=== PATIENT | male | born 1965 | race Caucasian/White ===

== ENCOUNTER 2020-04-19 19:00 | Observation (INO) | payer OTHER, SELFPAY ==
[2020-04-19 20:23] VITALS: BP 140/80; PULSE 80; RESP 18; TEMP 36.7; O2SAT 97; BMI 34.0
[2020-04-19 20:38] VITALS: BP 135/71; PULSE 81; RESP 18; TEMP 36.9; O2SAT 97
--- NOTE | 2020-04-19 20:59 | CT_ITS ---
EXAMINATION: CT HAND WITH CONTRAST, RIGHT CLINICAL INFORMATION: Tenosynovitis COMPARISON: None TECHNIQUE: Axial images obtained through the hand after IV injection of 85 mL of Omnipaque 350. Coronal and sagittal reformatted images are performed at CT scanner This CT examination was performed using dose optimization techniques as appropriate, variously including the following: *Automated exposure control *Adjustment of mA and/or kV according to patient size (this includes techniques or standardized protocols for targeted exams where dose is matched to indication/reason for exam; i.e. extremities or head) *Use of iterative reconstruction technique DLP: 121 mGy-cm FINDINGS: There is diffuse edema in the dorsum of the hand without focal abscess or fluid collection. No abnormal enhancing lesion or structure. Tendons and tendon sheaths are of normal normal without fluid collections in the tendon sheaths or enlargement/edema of the tendons. No fracture. No focal bone lesion or abnormal periosteal reaction. Joint spaces are normal. There is widening between the navicular and the lunate and the wrist consistent with scapholunate ligament disruption. CT/CT hand RT w con IMPRESSION: 1. Diffuse subcutaneous edema at the dorsum of the hand but no abnormality of the tendon or tendon sheaths. 2. Widening of the distance between navicular and lunate suggesting scapholunate ligament disruption.
--- NOTE | 2020-04-19 21:01 | ED.EXTPRO ---
HPI - Extremity Problem General Chief complaint: Extremity Problem <Carmen Ashley MD - Last Filed: 04/20/20 05:57> Stated complaint: HAND SWELLING <Carmen Ashley MD - Last Filed: 04/20/20 05:57> Time Seen by Provider: 04/19/20 20:52 <Carmen Ashley MD - Last Filed: 04/20/20 05:57> Source: patient <Carmen Ashley MD - Last Filed: 04/20/20 05:57> Mode of arrival: ambulatory <Carmen Ashley MD - Last Filed: 04/20/20 05:57> Limitations: no limitations <Carmen Ashley MD - Last Filed: 04/20/20 05:57> History of Present Illness HPI Narrative: Patient comes to emergency room complaining of right hand swelling, redness and pain. Patient states he noticed that his hand was getting swollen and red this morning, has been progressing throughout the day. Patient states yesterday he had a small paper cut to his finger on the right-hand but does not seem infected. Patient is not an IV drug user, patient has not had any recent injuries, no other infections, no fever. <Carmen Ashley MD - Last Filed: 04/20/20 05:57> MD Complaint: other ( Cellulitis) <Carmen Ashley MD - Last Filed: 04/20/20 05:57> Related Data Home medications: Home Medications Medication Instructions Recorded Confirmed amlodipine-benazepril 1 cap PO DAILY 04/19/20 04/19/20 pravastatin 40 mg PO DAILY 04/19/20 04/19/20 <Carmen Ashley MD - Last Filed: 04/20/20 05:57> Allergies/Adverse reactions: Allergies Allergy/AdvReac Type Severity Reaction Status Date / Time No Known Allergies Allergy Verified 04/19/20 20:23 <Carmen Ashley MD - Last Filed: 04/20/20 05:57> Review of Systems Review of Systems: Constitutional : No Weight loss, No Fever, No Chills, No Night Sweats, No Fatigue, No Malaise ENT/Mouth : No Hearing loss, No Ear Pain, No Nasal Congestion, No Sinus Pain, No Hoarseness, No sore throat, No Rhinorrhea, No Swallowing Difficulty Eyes: No Eye Pain, No Swelling, No Redness, No Foreign Body, No Discharge, No Vision Changes Cardiovascular : No Chest Pain, No SOB, No Dyspnea on Exertion, No Orthopnea, No Edema, No Palpitations Respiratory : No Cough, No Sputum, No Wheezing, No Smoke Exposure, No Dyspnea Gastrointestinal : No Nausea, No Vomiting, No Diarrhea, No Constipation, No abdominal Pain, No Hematochezia, No Melena Genitourinary : no irregular bleeding, No Dysuria, No Urinary Frequency, No Hematuria, No Urinary Incontinence, No Urgency, No Flank Pain, No Urinary Flow Changes, No Hesitancy Musculoskeletal : No joint pain, right hand swelling and erythema and pain Skin : No Skin Lesions, No rash Neuro : No Weakness, No Numbness, No Paresthesias, No Loss of Consciousness, No Dizziness, No Headache Psych : No Anxiety/Panic, No Depression, No SI/HI/AH/VH, No Social Issues, Heme/Lymph: No Bruising, No Bleeding,No Lymphadenopathy Endocrine : No Polyuria, No Polydipsia, No Temperature Intolerance <Carmen Ashley MD - Last Filed: 04/20/20 05:57> [facility] Past Medical History Medical History: Medical History (Updated 04/20/20 @ 04:52 by Bayron Toussaint MD) HTN (hypertension) Hyperlipidemia <Carmen Ashley MD - Last Filed: 04/20/20 05:57> Social History Social History: Social History Alcohol intake: never Smoked in Last 30 Days: No Use of substances other than those prescribed or required for medical reasons: No Advance Directives: No Advance Directives Information Provided: Yes <Carmen Ashley MD - Last Filed: 04/20/20 05:57> Physical Exam Vital Signs: Vital Signs: Last Vital Signs Temp 98 F 04/20/20 05:48 Pulse 76 04/20/20 05:48 Resp 18 04/20/20 05:48 BP 108/61 04/20/20 05:48 Pulse Ox 95 04/20/20 05:48 Body Mass Index 34.0 <Carmen Ashley MD - Last Filed: 04/20/20 05:57> Vital Signs: Last Vital Signs Temp 98 F 04/20/20 05:48 Pulse 76 04/20/20 05:48 Resp 18 04/20/20 05:48 BP 108/61 04/20/20 05:48 Pulse Ox 95 04/20/20 05:48 Body Mass Index 34.0 <Bayron Toussaint MD - Last Filed: 04/20/20 04:56> Appearance: Alert. Oriented X3. No acute distress. Eyes: Pupils equal, round and reactive to light. ENT: Pharynx normal. Neck: Normal inspection. Neck supple. No lymph nodes noted. No crepitus CVS: Normal heart rate and rhythm. Pulses normal. Normal S1 and S2 Respiratory: No respiratory distress. Breath sounds normal. No Wheezing. No rales Abdomen: Soft and nontender. No rigidity. No distention. good BS x4 Skin: stays right hand is erythematous and swollen from the fingers up to the wrist, streaks of erythema going up his arm, patient is unable to fully close his hand due to pain Extremities: No lower extremity edema. No lower extremity edema. No Lacerations. No Rash Neuro: Oriented X 3. No motor deficit. No sensory deficit. Moving all extermities. No slurred speech. <Carmen Ashley MD - Last Filed: 04/20/20 05:57> Course Course Course Narrative: I discussed the labs and imaging with the patient, patient states that he does not like to stay in the hospital and he wanted to leave. I discussed with him leaving against medical advice, including the risks of the infection spreading, potential of causing sepsis and even being limb threatening. Patient changed his mind and decided to stay. I discussed the above-mentioned with the hospitalist, patient being admitted. <Carmen Ashley MD - Last Filed: 04/20/20 05:57> MDM - Extremity (Nontraumatic) Lab Data Result diagrams: : 04/19/20 21:20 04/19/20 21:21 <Carmen Ashley MD - Last Filed: 04/20/20 05:57> Labs: Lab Results 04/19/20 04/19/20 04/19/20 Range/Units 21:20 21:20 21:20 WBC 19.3 H (4.8-10.8) X10*3/uL RBC 4.97 (4.60-5.80) X10*6/uL Hgb 15.2 (14.0-18.0) g/dl Hct 45.8 (42-52) % MCV 92.2 (80-98) fL MCH 30.6 (27.0-33.0) pg MCHC 33.2 (31.0-36.0) g/dl RDW 13.2 (11.0-16.0) % Plt Count 276 (160-400) X10*3/uL MPV 10.1 (9.4-12.4) fL Immature Gran % (Auto) 0.5 H (0.0-0.4) % Neut % (Auto) 74.4 H (45-73) % Lymph % (Auto) 15.0 L (20-40) % Nicholas % (Auto) 9.1 (2-11) % Eos % (Auto) 0.6 (0-4) % Baso % (Auto) 0.4 (0-2) % Lymph # (Auto) 2.9 (1.2-4.9) X10*3/uL Nicholas # (Auto) 1.8 H (0.1-1.2) X10*3/uL Eos # (Auto) 0.1 (0.0-0.4) X10*3/uL Baso # (Auto) 0.1 (0.0-0.2) X10*3/uL Abs Immat Gran (auto) 0.09 H (0.00-0.03) X10*3/uL Absolute Neuts (auto) 14.4 H (2.0-8.3) X10*3/uL Absolute Nucleated RBC 0.000 (0.0-0.012) X10*3/uL Nucleated RBC % (auto) 0.0 (0.0-0.2) /100WBC Smear Tech's Comments VERIFIED Sodium (135-145) mmol/L Potassium (3.3-5.1) mmol/l Chloride (96-108) mmol/L Carbon Dioxide (22-29) mmol/L Anion Gap (12-20) BUN (9-16) mg/dL Creatinine (0.5-1.4) mg/dL Estim Creat Clear Calc Estimated GFR Random Glucose (60-115) mg/dL Lactic Acid 1.1 (0.5-2.0) mmol/L Calcium (8.4-10.2) mg/dL Urine Color YELLOW Urine Appearance HAZY Urine pH 8.0 (5.0-8.0) Ur Specific [place] 1.020 (1.005-1.025) Urine Protein NEG (NEG-TRACE) MG/DL Urine Glucose (UA) NEG (NEG) MG/DL Urine Ketones NEG (NEG) MG/DL Urine Blood TRACE (NEG) Urine Nitrite NEG (NEG) Ur Leukocyte Esterase NEG (NEG) Urine RBC 1-4 (0) /HPF Urine WBC 1-4 (0-4) /HPF Ur Squamous Epith Cells 1+ /LPF Amorphous Sediment 1+ /LPF Urine Bacteria 1+ /LPF Urine Opiates Screen (Not Detect) Ur Barbiturates Screen (Not Detect) Ur Phencyclidine Scrn (Not Detect) Ur Amphetamines Screen (Not Detect) U Benzodiazepines Scrn (Not Detect) Urine Cocaine Screen (Not Detect) U Marijuana (THC) Screen (Not Detect) COVID-19 ([facility]) (Negative) COVID-19 Clin Com 04/19/20 04/19/20 04/20/20 Range/Units 21:20 21:21 00:11 WBC (4.8-10.8) X10*3/uL RBC (4.60-5.80) X10*6/uL Hgb (14.0-18.0) g/dl Hct (42-52) % MCV (80-98) fL MCH (27.0-33.0) pg MCHC (31.0-36.0) g/dl RDW (11.0-16.0) % Plt Count (160-400) X10*3/uL MPV (9.4-12.4) fL Immature Gran % (Auto) (0.0-0.4) % Neut % (Auto) (45-73) % Lymph % (Auto) (20-40) % Nicholas % (Auto) (2-11) % Eos % (Auto) (0-4) % Baso % (Auto) (0-2) % Lymph # (Auto) (1.2-4.9) X10*3/uL Nicholas # (Auto) (0.1-1.2) X10*3/uL Eos # (Auto) (0.0-0.4) X10*3/uL Baso # (Auto) (0.0-0.2) X10*3/uL Abs Immat Gran (auto) (0.00-0.03) X10*3/uL Absolute Neuts (auto) (2.0-8.3) X10*3/uL Absolute Nucleated RBC (0.0-0.012) X10*3/uL Nucleated RBC % (auto) (0.0-0.2) /100WBC Smear Tech's Comments Sodium 138 (135-145) mmol/L Potassium 4.6 (3.3-5.1) mmol/l Chloride 99 (96-108) mmol/L Carbon Dioxide 31 H (22-29) mmol/L Anion Gap 13 (12-20) BUN 19 H (9-16) mg/dL Creatinine 0.89 (0.5-1.4) mg/dL Estim Creat Clear Calc 87.1 Estimated GFR > 60 Random Glucose 87 (60-115) mg/dL Lactic Acid (0.5-2.0) mmol/L Calcium 9.4 (8.4-10.2) mg/dL Urine Color Urine Appearance Urine pH (5.0-8.0) Ur Specific [place] (1.005-1.025) Urine Protein (NEG-TRACE) MG/DL Urine Glucose (UA) (NEG) MG/DL Urine Ketones (NEG) MG/DL Urine Blood (NEG) Urine Nitrite (NEG) Ur Leukocyte Esterase (NEG) Urine RBC (0) /HPF Urine WBC (0-4) /HPF Ur Squamous Epith Cells /LPF Amorphous Sediment /LPF Urine Bacteria /LPF Urine Opiates Screen Not Detected (Not Detect) Ur Barbiturates Screen Not Detected (Not Detect) Ur Phencyclidine Scrn Not Detected (Not Detect) Ur Amphetamines Screen Not Detected (Not Detect) U Benzodiazepines Scrn Not Detected (Not Detect) Urine Cocaine Screen Not Detected (Not Detect) U Marijuana (THC) Screen POSITIVE H (Not Detect) COVID-19 ([facility]) Negative (Negative) COVID-19 Clin Com See Note <Carmen Ashley MD - Last Filed: 04/20/20 05:57> Lab Results 04/19/20 04/19/20 04/19/20 Range/Units 21:20 21:20 21:20 WBC 19.3 H (4.8-10.8) X10*3/uL RBC 4.97 (4.60-5.80) X10*6/uL Hgb 15.2 (14.0-18.0) g/dl Hct 45.8 (42-52) % MCV 92.2 (80-98) fL MCH 30.6 (27.0-33.0) pg MCHC 33.2 (31.0-36.0) g/dl RDW 13.2 (11.0-16.0) % Plt Count 276 (160-400) X10*3/uL MPV 10.1 (9.4-12.4) fL Immature Gran % (Auto) 0.5 H (0.0-0.4) % Neut % (Auto) 74.4 H (45-73) % Lymph % (Auto) 15.0 L (20-40) % Nicholas % (Auto) 9.1 (2-11) % Eos % (Auto) 0.6 (0-4) % Baso % (Auto) 0.4 (0-2) % Lymph # (Auto) 2.9 (1.2-4.9) X10*3/uL Nicholas # (Auto) 1.8 H (0.1-1.2) X10*3/uL Eos # (Auto) 0.1 (0.0-0.4) X10*3/uL Baso # (Auto) 0.1 (0.0-0.2) X10*3/uL Abs Immat Gran (auto) 0.09 H (0.00-0.03) X10*3/uL Absolute Neuts (auto) 14.4 H (2.0-8.3) X10*3/uL Absolute Nucleated RBC 0.000 (0.0-0.012) X10*3/uL Nucleated RBC % (auto) 0.0 (0.0-0.2) /100WBC Smear Tech's Comments VERIFIED Sodium (135-145) mmol/L Potassium (3.3-5.1) mmol/l Chloride (96-108) mmol/L Carbon Dioxide (22-29) mmol/L Anion Gap (12-20) BUN (9-16) mg/dL Creatinine (0.5-1.4) mg/dL Estim Creat Clear Calc Estimated GFR Random Glucose (60-115) mg/dL Lactic Acid 1.1 (0.5-2.0) mmol/L Calcium (8.4-10.2) mg/dL Urine Color YELLOW Urine Appearance HAZY Urine pH 8.0 (5.0-8.0) Ur Specific [place] 1.020 (1.005-1.025) Urine Protein NEG (NEG-TRACE) MG/DL Urine Glucose (UA) NEG (NEG) MG/DL Urine Ketones NEG (NEG) MG/DL Urine Blood TRACE (NEG) Urine Nitrite NEG (NEG) Ur Leukocyte Esterase NEG (NEG) Urine RBC 1-4 (0) /HPF Urine WBC 1-4 (0-4) /HPF Ur Squamous Epith Cells 1+ /LPF Amorphous Sediment 1+ /LPF Urine Bacteria 1+ /LPF Urine Opiates Screen (Not Detect) Ur Barbiturates Screen (Not Detect) Ur Phencyclidine Scrn (Not Detect) Ur Amphetamines Screen (Not Detect) U Benzodiazepines Scrn (Not Detect) Urine Cocaine Screen (Not Detect) U Marijuana (THC) Screen (Not Detect) COVID-19 ([facility]) (Negative) COVID-19 Clin Com 04/19/20 04/19/20 04/20/20 Range/Units 21:20 21:21 00:11 WBC (4.8-10.8) X10*3/uL RBC (4.60-5.80) X10*6/uL Hgb (14.0-18.0) g/dl Hct (42-52) % MCV (80-98) fL MCH (27.0-33.0) pg MCHC (31.0-36.0) g/dl RDW (11.0-16.0) % Plt Count (160-400) X10*3/uL MPV (9.4-12.4) fL Immature Gran % (Auto) (0.0-0.4) % Neut % (Auto) (45-73) % Lymph % (Auto) (20-40) % Nicholas % (Auto) (2-11) % Eos % (Auto) (0-4) % Baso % (Auto) (0-2) % Lymph # (Auto) (1.2-4.9) X10*3/uL Nicholas # (Auto) (0.1-1.2) X10*3/uL Eos # (Auto) (0.0-0.4) X10*3/uL Baso # (Auto) (0.0-0.2) X10*3/uL Abs Immat Gran (auto) (0.00-0.03) X10*3/uL Absolute Neuts (auto) (2.0-8.3) X10*3/uL Absolute Nucleated RBC (0.0-0.012) X10*3/uL Nucleated RBC % (auto) (0.0-0.2) /100WBC Smear Tech's Comments Sodium 138 (135-145) mmol/L Potassium 4.6 (3.3-5.1) mmol/l Chloride 99 (96-108) mmol/L Carbon Dioxide 31 H (22-29) mmol/L Anion Gap 13 (12-20) BUN 19 H (9-16) mg/dL Creatinine 0.89 (0.5-1.4) mg/dL Estim Creat Clear Calc 87.1 Estimated GFR > 60 Random Glucose 87 (60-115) mg/dL Lactic Acid (0.5-2.0) mmol/L Calcium 9.4 (8.4-10.2) mg/dL Urine Color Urine Appearance Urine pH (5.0-8.0) Ur Specific [place] (1.005-1.025) Urine Protein (NEG-TRACE) MG/DL Urine Glucose (UA) (NEG) MG/DL Urine Ketones (NEG) MG/DL Urine Blood (NEG) Urine Nitrite (NEG) Ur Leukocyte Esterase (NEG) Urine RBC (0) /HPF Urine WBC (0-4) /HPF Ur Squamous Epith Cells /LPF Amorphous Sediment /LPF Urine Bacteria /LPF Urine Opiates Screen Not Detected (Not Detect) Ur Barbiturates Screen Not Detected (Not Detect) Ur Phencyclidine Scrn Not Detected (Not Detect) Ur Amphetamines Screen Not Detected (Not Detect) U Benzodiazepines Scrn Not Detected (Not Detect) Urine Cocaine Screen Not Detected (Not Detect) U Marijuana (THC) Screen POSITIVE H (Not Detect) COVID-19 ([facility]) Negative (Negative) COVID-19 Clin Com See Note <Bayron Toussaint MD - Last Filed: 04/20/20 04:56> Discharge Plan Discharge Clinical Impression: Cellulitis of hand, right <Carmen Ashley MD - Last Filed: 04/20/20 05:57> Patient Disposition: Home, Self-Care <Carmen Ashley MD - Last Filed: 04/20/20 05:57> Instructions: Cellulitis (ED) <Carmen Ashley MD - Last Filed: 04/20/20 05:57> Prescriptions: No Action pravastatin 40 mg tablet 40 mg PO DAILY RF: 0 amlodipine-benazepril 10-20 mg capsule 1 cap PO DAILY RF: 0 <Carmen Ashley MD - Last Filed: 04/20/20 05:57> Interventions: ED Discharge Assessment Last Done: 04/19/20 23:28 <Carmen Ashley MD - Last Filed: 04/20/20 05:57>
[2020-04-19] MEDS: Piperacillin Sodium/Tazobactam 3.375 GM in 0.9 % Sodium Chloride 50 ML IV (21:27)
[2020-04-19] MEDS: 0.9 % Sodium Chloride 1,000 ML 999 ML IVCONT ×3 (21:28→23:04)
[2020-04-19 21:34] LABS: Glucose Urine UA NEG (NEG); Leukocyte Esterase Urine NEG (NEG); Nitrite Urine NEG (NEG); Urine Blood TRACE (NEG); Urine Ketones NEG (NEG); Urine Protein NEG (NEG-TRACE)
[2020-04-19 21:37] LABS: Appearance Urine HAZY; Color Urine YELLOW
[2020-04-19 21:41] LABS: Basophils Absolute Auto 0.1 X10*3/uL (0.0-0.2); Basophils Percent Auto 0.4 % (0-2); Eosinophils Absolute Auto 0.1 X10*3/uL (0.0-0.4); Eosinophils Percent Auto 0.6 % (0-4); Hematocrit 45.8 % (42-52); Hemoglobin 15.2 g/dl (14.0-18.0); Imm Gran Abs Auto 0.09 X10*3/uL (0.00-0.03); Imm Gran Pct Auto 0.5 % (0.0-0.4); Lymphocytes Absolute Auto 2.9 X10*3/uL (1.2-4.9); MANUAL DIFF FLAG SCAN; Mean Corpuscular HGB Conc 33.2 g/dl (31.0-36.0); Mean Corpuscular Hemoglobin 30.6 pg (27.0-33.0); Mean Corpuscular Volume 92.2 fL (80-98); Mean Platelet Volume 10.1 fL (9.4-12.4); Monocytes Absolute Auto 1.8 X10*3/uL (0.1-1.2); Monocytes Percent Auto 9.1 % (2-11); Neutrophils Absolute Auto 14.4 X10*3/uL (2.0-8.3); Neutrophils Percent Auto 74.4 % (45-73); Platelet Count 276 X10*3/uL (160-400); Red Blood Count 4.97 X10*6/uL (4.60-5.80); Red Cell Distribution Width 13.2 % (11.0-16.0); SCAN SMEAR FLAG 1; White Blood Count 19.3 X10*3/uL (4.8-10.8)
[2020-04-19 21:52] VITALS: BP 126/74; PULSE 72; RESP 18; TEMP 36.7; O2SAT 98
[2020-04-19 21:52] LABS: Bacteria Urine 1+ /LPF; Squamous Epithelial Cell Urine 1+ /LPF
[2020-04-19 21:53] LABS: Amorphous Sediment Urine 1+ /LPF
[2020-04-19] MEDS: vancomycin HCL 1,000 MG in 0.9 % Sodium Chloride 250 ML 270 MG IV (21:53)
[2020-04-19 21:58] LABS: Lactic Acid 1.1 mmol/L (0.5-2.0)
[2020-04-19 21:59] LABS: SLIDE REVIEW VERIFIED
[2020-04-19 22:02] LABS: Anion Gap 13 (12-20); Blood Urea Nitrogen 19 mg/dL (9-16); Calcium 9.4 mg/dL (8.4-10.2); Carbon Dioxide 31 mmol/L (22-29); Chloride 99 mmol/L (96-108); Creatinine Clr Calc Pharmacy 87.1; Estimated Glomerular Filt Rate > 60; Glucose Random 87 mg/dL (60-115); Potassium 4.6 mmol/l (3.3-5.1); Sodium 138 mmol/L (135-145)
[2020-04-19 22:19] LABS: Amphetamine Screen Urine Not Detected (Not Detect); Barbiturates, Urine Not Detected (Not Detect); Benzodiazepines Screen Urine Not Detected (Not Detect); Cannabinoid Screen Urine POSITIVE (Not Detect); Cocaine Screen Urine Not Detected (Not Detect); Opiate Screen Urine Not Detected (Not Detect); Phencyclidine Screen Urine Not Detected (Not Detect)
[2020-04-19] MEDS: iohexoL 350 MG/ML 100 ML INFUS..BTL IV (22:25)
[2020-04-19 23:29] VITALS: BP 143/74; PULSE 79; RESP 18; TEMP 36.8; O2SAT 99
[2020-04-20 00:48] LABS: COVID-19 Test Negative (Negative)
[2020-04-20 02:00] VITALS: RESP 18
[2020-04-20 03:50] VITALS: RESP 18
--- NOTE | 2020-04-20 04:48 | P.HPHOSP_ITS ---
History of Present Illness Date of Service: 04/19/20 Chief Complaint: hand swelling this is a 55-year-old male with past medical history of hypertension, hyperlipidemia who presents to the hospital with swelling and redness and pain of the right hand. Patient reports that symptoms started this a.m., with progressive worsening of his swelling , and pain. It appears that he may have had a small paper cause to his right finger but no other trauma that he can remember. Denies any history of IV drug use, no recent injury to the hand. He denies any fever or chills, no headache, change in vision, chest pain, shortness of breath, abdominal pain nausea or vomiting, no diarrhea constipation, no lower extremity edema. Review of system otherwise negative on arrival to the ED hemodynamically stable with no significant abnormal vitals labs are significant for WBC count of 19.3, otherwise unremarkable. CT of the hand is negative for any tenosynovitis, but shows diffuse subcutaneous edema at the dorsum of the hand. Past medical history: Hypertension, hyperlipidemia past surgical history: Denies family history: Denies social history: Comes from home, denies any tobacco alcohol or illicit drug Review of Systems Review of Systems: Yes all other systems are reviewed and are negative [facility] Medical History (Updated 04/20/20 @ 04:52 by Bayron Toussaint MD) HTN (hypertension) Hyperlipidemia Social History Alcohol intake: never Smoked in Last 30 Days: No Use of substances other than those prescribed or required for medical reasons: No Advance Directives: No Advance Directives Information Provided: Yes Meds Allergies Allergy/AdvReac Type Severity Reaction Status Date / Time No Known Allergies Allergy Verified 04/19/20 20:23 Home Medications Medication Instructions Recorded Confirmed Type amlodipine-benazepril 1 cap PO DAILY 04/19/20 04/19/20 History pravastatin 40 mg PO DAILY 04/19/20 04/19/20 History Physical Exam Vital Signs and Narrative: Vital Signs: Last Vital Signs Temp 98.3 F 04/19/20 23:29 Pulse 79 04/19/20 23:29 Resp 18 04/20/20 03:50 BP 143/74 H 04/19/20 23:29 Pulse Ox 99 04/19/20 23:29 Body Mass Index 34.0 Const: General: cooperative and no acute distress Orientation/co nsciousness: patient oriented x3 Eyes: General: appearance normal, both eyes and all related structures Pupils: Equal, round and reactive pupils present Resp: Effort & Inspection: normal respiratory effort and able to speak in complete sentences Auscultation: clear to auscultation bilaterally Cardio: Rate: regular rate Rhythm: regular rhythm GI: Palpation (GI): Soft to palpation Auscultation: normal bowel sounds Skin: General skin exam: no rashes or lesions noted Neuro: General: patient oriented x3 Cranial nerves: Yes Equal, round and reactive pupils present Cognition (Neuro): normal cognition Extrem: Other: right hand edema, edema, and tenderness, warmth. No difficulty moving fingers or wrist Results Labs CBC and Chem 7: 04/19/20 21:20 04/19/20 21:21 Labs: Laboratory Results - last 24 hr 04/19/20 04/19/20 04/19/20 21:20 21:20 21:20 MCV 92.2 MCH 30.6 MCHC 33.2 RDW 13.2 Plt Count 276 MPV 10.1 Immature Gran % (Auto) 0.5 H Neut % (Auto) 74.4 H Lymph % (Auto) 15.0 L [place] % (Auto) 9.1 Eos % (Auto) 0.6 Baso % (Auto) 0.4 Lymph # (Auto) 2.9 [place] # (Auto) 1.8 H Eos # (Auto) 0.1 Baso # (Auto) 0.1 Abs Immat Gran (auto) 0.09 H Absolute Neuts (auto) 14.4 H Absolute Nucleated RBC 0.000 Nucleated RBC % (auto) 0.0 Smear Tech's Comments VERIFIED Anion Gap Estim Creat Clear Calc Estimated GFR Random Glucose Lactic Acid 1.1 Calcium Urine Color YELLOW Urine Appearance HAZY Urine pH 8.0 Ur Specific [place] 1.020 Urine Protein NEG Urine Glucose (UA) NEG Urine Ketones NEG Urine Blood TRACE Urine Nitrite NEG Ur Leukocyte Esterase NEG Urine RBC 1-4 Urine WBC 1-4 Ur Squamous Epith Cells 1+ Amorphous Sediment 1+ Urine Bacteria 1+ Urine Opiates Screen Ur Barbiturates Screen Ur Phencyclidine Scrn Ur Amphetamines Screen U Benzodiazepines Scrn Urine Cocaine Screen U Marijuana (THC) Screen COVID-19 ([facility]) COVID-19 Clin Com 04/19/20 04/19/20 04/20/20 21:20 21:21 00:11 MCV MCH MCHC RDW Plt Count MPV Immature Gran % (Auto) Neut % (Auto) Lymph % (Auto) [place] % (Auto) Eos % (Auto) Baso % (Auto) Lymph # (Auto) [place] # (Auto) Eos # (Auto) Baso # (Auto) Abs Immat Gran (auto) Absolute Neuts (auto) Absolute Nucleated RBC Nucleated RBC % (auto) Smear Tech's Comments Anion Gap 13 Estim Creat Clear Calc 87.1 Estimated GFR > 60 Random Glucose 87 Lactic Acid Calcium 9.4 Urine Color Urine Appearance Urine pH Ur Specific [place] Urine Protein Urine Glucose (UA) Urine Ketones Urine Blood Urine Nitrite Ur Leukocyte Esterase Urine RBC Urine WBC Ur Squamous Epith Cells Amorphous Sediment Urine Bacteria Urine Opiates Screen Not Detected Ur Barbiturates Screen Not Detected Ur Phencyclidine Scrn Not Detected Ur Amphetamines Screen Not Detected U Benzodiazepines Scrn Not Detected Urine Cocaine Screen Not Detected U Marijuana (THC) Screen POSITIVE H COVID-19 ([facility]) Negative COVID-19 Clin Com See Note Imaging Radiologist's Impressions: Impressions Hand CT 04/19/20 20:59 IMPRESSION: 1. Diffuse subcutaneous edema at the dorsum of the hand but no abnormality of the tendon or tendon sheaths. 2. Widening of the distance between navicular and lunate suggesting scapholunate ligament disruption. Assessment and Plan (1) Cellulitis of hand, right: Status: Acute (2) HTN (hypertension): Status: Acute (3) Hyperlipidemia: Status: Inactive 55-year-old male presents to the hospital with right hand swelling, found to have cellulitis of the right hand. # Right hand cellulitis - afebrile, has leukocytosis - significant erythema, tenderness, warmth and edema - no evidence of tenosynovitis and CT of the hand plan: - Admit under observation, start ceftriaxone, follow blood cultures # hypertension - slightly elevated - will continue home medication # hyperlipidemia - continue statin DVT prophylaxis: Early ambulation
[2020-04-20 05:48] VITALS: BP 108/61; PULSE 76; RESP 18; TEMP 36.6; O2SAT 95
[2020-04-20 07:39] VITALS: BP 110/76; PULSE 78; TEMP 36.6; O2SAT 99
--- NOTE | 2020-04-20 08:04 | PC.NURSE ---
called at 0750
--- NOTE | 2020-04-20 09:17 | P.PNIM_ITS ---
Subjective Subjective Date of Service: 04/20/20 Interval History: better ROM, no fever, denies trauma Cardiovascular Cardiovascular: Reports no additional cardiovascular complaints Respiratory Respiratory: Reports no additional respiratory complaints Physical Exam Vital Signs: Vital Signs: Last Vital Signs Temp 98 F 04/20/20 07:39 Pulse 78 04/20/20 07:39 Resp 18 04/20/20 05:48 BP 110/76 04/20/20 07:39 Pulse Ox 99 04/20/20 07:39 Body Mass Index 34.0 General: AO X 3, no acute distress Resp: CTA bilateral CVS: S1,S2,RRR GI: soft, non tender, non distended Neuro: motor grossly intact Psych: appropriate affect right hand: swollen, decent ROM, tender over scapholunate ligament, mild erythema, positive sensation Objective Data Current Medications Generic Name Dose Route Start Last Admin Trade Name Freq PRN Reason Stop Dose Admin Acetaminophen 650 mg 04/20/20 08:38 Acetaminophen 325 Mg Tablet PO Q6H PRN Pain, Mild (Pain Scale 1-3) Docusate Sodium 100 mg 04/20/20 08:38 Docusate Sodium 100 Mg Capsule PO DAILY PRN Constipation Cefazolin Sodium 1 gm/ Sodium 50 mls @ 100 mls/hr 04/20/20 09:00 Chloride IV Q8H [facility] Non-Formulary Medication 1 cap 04/20/20 09:00 Amlodipine-Benazepril PO DAILY [facility] Ondansetron HCl 4 mg 04/20/20 08:38 Ondansetron Hcl 4 Mg/2 Ml Vial IVPUSH Q8H PRN Nausea and Vomiting Oxycodone HCl 5 mg 04/20/20 08:38 Oxycodone Hcl Immed Release 5 Mg Tablet PO Q6H PRN Pain, Severe (Pain Scale 7-10) Pravastatin Sodium 40 mg 04/20/20 09:00 Pravastatin Sodium 40 Mg Tablet PO DAILY [facility] Sodium Chloride 3 ml 04/20/20 08:38 0.9 % Sodium Chloride Flush 3 Ml Syringe IVFLUSH QSHIFT [facility] Labs CBC & Chem 7: 04/19/20 21:20 04/19/20 21:21 Assessment and Plan (1) Cellulitis of hand, right: Status: Acute (2) HTN (hypertension): Status: Acute (3) Scapholunate ligament injury with no instability: Status: Acute Assessment and Plan: 55M presented with right hand swelling scapholunate ligament injury with superimposed cellulitis IV ancef, ID eval, ortho eval HTN continue amlodipine/benazepril HLD statin
[2020-04-20] MEDS: 0.9 % Sodium Chloride Flush 3 ML SYRINGE IVFLUSH (09:26)
[2020-04-20] MEDS: Pravastatin Sodium 40 MG TABLET PO (09:27)
[2020-04-20 09:36] VITALS: BP 144/84; PULSE 75; RESP 18; TEMP 36.4; O2SAT 96
[2020-04-20 10:29] LABS: Basophils Absolute Auto 0.1 X10*3/uL (0.0-0.2); Basophils Percent Auto 0.4 % (0-2); Eosinophils Absolute Auto 0.1 X10*3/uL (0.0-0.4); Eosinophils Percent Auto 0.6 % (0-4); Hematocrit 44.4 % (42-52); Hemoglobin 15.1 g/dl (14.0-18.0); Imm Gran Abs Auto 0.07 X10*3/uL (0.00-0.03); Imm Gran Pct Auto 0.4 % (0.0-0.4); Lymphocytes Absolute Auto 2.2 X10*3/uL (1.2-4.9); Lymphocytes Percent Auto 13.4 % (20-40); MANUAL DIFF FLAG SCAN; Mean Corpuscular Hemoglobin 30.9 pg (27.0-33.0); Mean Platelet Volume 10.6 fL (9.4-12.4); Monocytes Absolute Auto 1.6 X10*3/uL (0.1-1.2); Monocytes Percent Auto 9.7 % (2-11); Neutrophils Absolute Auto 12.1 X10*3/uL (2.0-8.3); Neutrophils Percent Auto 75.5 % (45-73); Platelet Count 265 X10*3/uL (160-400); Red Blood Count 4.88 X10*6/uL (4.60-5.80); Red Cell Distribution Width 13.1 % (11.0-16.0); SCAN SMEAR FLAG 1
[2020-04-20] MEDS: lisinopriL 20 MG TABLET PO (10:51)
[2020-04-20] MEDS: amLODIPine Besylate 10 MG TABLET PO (10:52)
[2020-04-20 11:01] LABS: Anion Gap 11 (12-20); Blood Urea Nitrogen 13 mg/dL (9-16); Carbon Dioxide 25 mmol/L (22-29); Chloride 106 mmol/L (96-108); Creatinine Clr Calc Pharmacy 107.7; Estimated Glomerular Filt Rate > 60; Glucose Random 82 mg/dL (60-115); Sodium 138 mmol/L (135-145)
--- NOTE | 2020-04-20 11:04 | MHC.CM.PN ---
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 MET WITH PATIENT HE LIVES WITH HIS ,IS ACTIVE, [employer],INDEPENDENT IN ALL ADLS AND MOBILITY, HAS NO VNA /NO DME SERVICES IN THE HOME DISCHARGE PLAN -HOME WITH HIS NO SERVICES ANTICIPATED WILL NEED RETURN TO WORK NOTEE AT DISCHARGE REQUESTED COPY OF THE HEALTH CARE PROXY BE BROUGHT IN TRANSPORTATION FAMILY PCP ALLYSON MOODY INSTRUCTED TO CALL PCP FOR POST HOSPITLA DISCHAGRE FOR FOLLOW UP OBSERVATION STATUS REVIEWED WITH PATIENT AND LEFT AT BEDSIDE WITH NAME CARE AND HOWM TO REch case management
[2020-04-20 11:16] LABS: Calcium 8.1 mg/dL (8.4-10.2)
[2020-04-20 11:58] VITALS: BP 127/77; PULSE 66; RESP 18; TEMP 36.5; O2SAT 95
[2020-04-20 12:30] LABS: SLIDE REVIEW VERIFIED
--- NOTE | 2020-04-20 13:09 | W.PM.IDCN ---
History of Present Illness Data of Consult Service Date: 04/20/20 Requesting physician: Eren Mason Primary Care Provider: Catracho Peres MD [facility] Reason for consult: right hand swelling He reports being well until yesterday when woke up with hand swelling He says he had abrasion on first finger for weeks and doesnt think it was related and thinks doctors are trying to blame a cellulitis on his laceration on hand which he had for weeks and that the real reason his hand blew up is that he touched a room door handle while visiting a friend at [facility] last week and that the doctors are trying to cover that up He denies fever,chills or history of gout Review of Systems Review of Systems: Yes all other systems are reviewed and are negative Musculoskeletal: Musculoskeletal: Reports arthralgias PMFSH Past Medical History Medical History HTN (hypertension) Hyperlipidemia Family History Family history: reviewed and not pertinent Social History Social History Alcohol intake: never Smoked in Last 30 Days: No Use of substances other than those prescribed or required for medical reasons: No Advance Directives: No Advance Directives Information Provided: Yes service: No Current occupational status: employed Travel History Recent Out of Country Travel Within the Last 8 Weeks: No Meds Allergies Allergy/AdvReac Type Severity Reaction Status Date / Time No Known Allergies Allergy Verified 04/19/20 20:23 Home Medications Medication Instructions Recorded Confirmed Type amlodipine-benazepril 1 cap PO DAILY 04/19/20 04/19/20 History pravastatin 40 mg PO DAILY 04/19/20 04/19/20 History Physical Exam Vital Signs: Vital Signs: Last Vital Signs Temp 97.7 F 04/20/20 11:58 Pulse 66 04/20/20 11:58 Resp 18 04/20/20 11:58 BP 127/77 04/20/20 11:58 Pulse Ox 95 04/20/20 11:58 Body Mass Index 34.0 Const: General: no acute distress HENMT: Head: Yes normal to inspection Eyes: General: appearance normal, both eyes and all related structures Resp: Effort & Inspection: normal respiratory effort Cardio: Rate: regular rate Rhythm: regular rhythm GI: Inspection: Yes normal to inspection : General: Yes no CVA tenderness Back/Spine/Pelvis: Back: no CVA tenderness Skin: General skin exam: no rashes or lesions noted Extrem: Other: right hand swollen,can bend,strength and sensation and pulse unremarkable,not red Assessment and Plan (1) Scapholunate ligament injury with no instability: Problem details: Do not see any toxicity or heat or redness indicating infection at this time Status: Acute Would hold antibiotics for now Check with Hand Surgery If the surgeon believes area needs drainage would culture and then adapt antibiotics to this but dont see any infection to treat at this time Results Labs CBC & Chem 7: 04/20/20 09:40 04/20/20 09:40 Labs: Short CBC 04/19/20 04/20/20 Range/Units 21:20 09:40 WBC 19.3 H 16.0 H (4.8-10.8) X10*3/uL Hgb 15.2 15.1 (14.0-18.0) g/dl Hct 45.8 44.4 (42-52) % Plt Count 276 265 (160-400) X10*3/uL BMP 04/19/20 04/20/20 21:21 09:40 Sodium 138 138 Potassium 4.6 4.0 Chloride 99 106 Carbon Dioxide 31 H 25 BUN 19 H 13 Creatinine 0.89 0.72 Calcium 9.4 8.1 L D Urine 04/19/20 Range/Units 21:20 Urine Color YELLOW Urine Appearance HAZY Urine pH 8.0 (5.0-8.0) Ur Specific [place] 1.020 (1.005-1.025) Urine Protein NEG (NEG-TRACE) MG/DL Urine Glucose (UA) NEG (NEG) MG/DL
--- NOTE | 2020-04-20 14:21 | PM.DS ---
DS: Providers Provider Date of admission: 04/19/20 23:43 Primary care physician: Catracho Peres MD Consults: 04/20/20 08:56 Consult to Infectious Diseases Routine Consulting Provider: Yvonne Baez Reason for consultation: cellulitis 04/20/20 09:07 Consult to Orthopedics Routine Consulting Provider: Angeles Bravo Reason for consultation: scapholunate ligament disruption DS: Diagnosis Discharge Diagnosis (1) Scapholunate ligament injury with no instability: Status: Acute Problem details: Do not see any toxicity or heat or redness indicating infection at this time DS: Medications Discharge Medications Home Medications: Home Medications Medication Instructions Recorded Confirmed amlodipine-benazepril 1 cap PO DAILY 04/19/20 04/19/20 pravastatin 40 mg PO DAILY 04/19/20 04/19/20 DS: Summary Hospital Course Hospital Course: Patient was admitted for right hand swelling, initially thought to be cellulitis. CT showed scapholunate ligament injury, but no deep infection. He received IV vanc and Zosyn in ED and Ancef on medical floor. He was evaluated by infectious disease who felt there was no active infection and recommended discontinuing antibiotics for now. case was discussed with Orthopedic surgery who recommended symptomatic management with NSAIDs and rest. No need for immobilization and last for comfort, patient can follow up at clinic. On further history taking most likely etiology his repetitive motion is patient is highly active with his hands at his occupation. He will therefore take some time off to rest. Time Spent with Patient Time attestation: Total time spent providing and/or coordinating discharge services: Physical Exam Vital Signs: Vital Signs: Last Vital Signs Temp 97.7 F 04/20/20 11:58 Pulse 66 04/20/20 11:58 Resp 18 04/20/20 11:58 BP 127/77 04/20/20 11:58 Pulse Ox 95 04/20/20 11:58 Body Mass Index 34.0 General: AO X 3, no acute distress Resp: CTA bilateral CVS: S1,S2,RRR GI: soft, non tender, non distended Neuro: motor grossly intact Psych: appropriate affect right hand swollen, tenderness over middorsal wrist DS: Data Data Completed and Pending Labs on day of discharge: 04/19/20 20:57 0.9 % Sodium Chloride [Ns] 1,000 ml IVCONT 999 mls/hr Piperacillin Sodium/Tazobactam [Zosyn] 3.375 gm 0.9 % Sodium Chloride [Ns] 50 ml IV ONCE vancomycin HCL 1,000 mg 0.9 % Sodium Chloride [Ns] 250 ml IV ONCE 04/19/20 20:59 CT hand RT w con Stat 04/19/20 21:12 Piperacillin Sodium/Tazobactam [Zosyn] 3.375 gm IV .STK-MED ONE 04/19/20 21:20 Complete Blood Count Auto Diff Stat Drug Screen Urine Stat Lactic Acid Stat SLIDE REVIEW Stat 04/19/20 21:21 Basic Metabolic Panel Stat 04/19/20 21:47 vancomycin HCL 1,000 mg .ROUTE .STK-MED ONE 04/19/20 21:48 0.9 % Sodium Chloride [Ns] 1,000 ml IVCONT 999 mls/hr 0.9 % Sodium Chloride [Ns] 1,000 ml IVCONT 999 mls/hr 04/19/20 22:24 iohexoL 350 MG/ML [Omnipaque 350 MG/ML] 100 ml IV ONCE ONE 04/19/20 23:40 Transfer Order Routine 04/20/20 00:11 COVID-19 ID NOW ([place]) Stat 04/20/20 09:00 ceFAZolin Sodium [Ancef] 1 gm 0.9 % Sodium Chloride [Ns] 50 ml IV Q8H 04/20/20 09:07 ceFAZolin Sodium [Ancef] 1 gm .ROUTE .STK-MED ONE 04/20/20 09:40 Basic Metabolic Panel Routine Complete Blood Count Auto Diff Routine SLIDE REVIEW Routine Laboratory Last Values WBC 16.0 X10*3/uL (4.8-10.8) H 04/20/20 09:40 RBC 4.88 X10*6/uL (4.60-5.80) 04/20/20 09:40 Hgb 15.1 g/dl (14.0-18.0) 04/20/20 09:40 Hct 44.4 % (42-52) 04/20/20 09:40 MCV 91.0 fL (80-98) 04/20/20 09:40 MCH 30.9 pg (27.0-33.0) 04/20/20 09:40 MCHC 34.0 g/dl (31.0-36.0) 04/20/20 09:40 RDW 13.1 % (11.0-16.0) 04/20/20 09:40 Plt Count 265 X10*3/uL (160-400) 04/20/20 09:40 MPV 10.6 fL (9.4-12.4) 04/20/20 09:40 Immature Gran % (Auto) 0.4 % (0.0-0.4) 04/20/20 09:40 Neut % (Auto) 75.5 % (45-73) H 04/20/20 09:40 Lymph % (Auto) 13.4 % (20-40) L 04/20/20 09:40 [place] % (Auto) 9.7 % (2-11) 04/20/20 09:40 Eos % (Auto) 0.6 % (0-4) 04/20/20 09:40 Baso % (Auto) 0.4 % (0-2) 04/20/20 09:40 Lymph # (Auto) 2.2 X10*3/uL (1.2-4.9) 04/20/20 09:40 [place] # (Auto) 1.6 X10*3/uL (0.1-1.2) H 04/20/20 09:40 Eos # (Auto) 0.1 X10*3/uL (0.0-0.4) 04/20/20 09:40 Baso # (Auto) 0.1 X10*3/uL (0.0-0.2) 04/20/20 09:40 Abs Immat Gran (auto) 0.07 X10*3/uL (0.00-0.03) H 04/20/20 09:40 Absolute Neuts (auto) 12.1 X10*3/uL (2.0-8.3) H 04/20/20 09:40 Absolute Nucleated RBC 0.000 X10*3/uL (0.0-0.012) 04/20/20 09:40 Nucleated RBC % (auto) 0.0 /100WBC (0.0-0.2) 04/20/20 09:40 Smear Tech's Comments VERIFIED 04/20/20 09:40 Sodium 138 mmol/L (135-145) 04/20/20 09:40 Potassium 4.0 mmol/l (3.3-5.1) 04/20/20 09:40 Chloride 106 mmol/L (96-108) 04/20/20 09:40 Carbon Dioxide 25 mmol/L (22-29) 04/20/20 09:40 Anion Gap 11 (12-20) L 04/20/20 09:40 BUN 13 mg/dL (9-16) 04/20/20 09:40 Creatinine 0.72 mg/dL (0.5-1.4) 04/20/20 09:40 Estim Creat Clear Calc 107.7 04/20/20 09:40 Estimated GFR > 60 04/20/20 09:40 Random Glucose 82 mg/dL (60-115) 04/20/20 09:40 Lactic Acid 1.1 mmol/L (0.5-2.0) 04/19/20 21:20 Calcium 8.1 mg/dL (8.4-10.2) L D 04/20/20 09:40 Urine Color YELLOW 04/19/20 21:20 Urine Appearance HAZY 04/19/20 21:20 Urine pH 8.0 (5.0-8.0) 04/19/20 21:20 Ur Specific [place] 1.020 (1.005-1.025) 04/19/20 21:20 Urine Protein NEG MG/DL (NEG-TRACE) 04/19/20 21:20 Urine Glucose (UA) NEG MG/DL (NEG) 04/19/20 21:20 Urine Ketones NEG MG/DL (NEG) 04/19/20 21:20 Urine Blood TRACE (NEG) 04/19/20 21:20 Urine Nitrite NEG (NEG) 04/19/20 21:20 Ur Leukocyte Esterase NEG (NEG) 04/19/20 21:20 Urine RBC 1-4 /HPF (0) 04/19/20 21:20 Urine WBC 1-4 /HPF (0-4) 04/19/20 21:20 Ur Squamous Epith Cells 1+ /LPF 04/19/20 21:20 Amorphous Sediment 1+ /LPF 04/19/20 21:20 Urine Bacteria 1+ /LPF 04/19/20 21:20 Urine Opiates Screen Not Detected (Not Detect) 04/19/20 21:20 Ur Barbiturates Screen Not Detected (Not Detect) 04/19/20 21:20 Ur Phencyclidine Scrn Not Detected (Not Detect) 04/19/20 21:20 Ur Amphetamines Screen Not Detected (Not Detect) 04/19/20 21:20 U Benzodiazepines Scrn Not Detected (Not Detect) 04/19/20 21:20 Urine Cocaine Screen Not Detected (Not Detect) 04/19/20 21:20 U Marijuana (THC) Screen POSITIVE (Not Detect) H 04/19/20 21:20 COVID-19 ([place]) Negative (Negative) 04/20/20 00:11 COVID-19 Clin Com See Note 04/20/20 00:11 Discharge Plan Discharge Patient Disposition: Home, Self-Care Referrals: Catracho Peres MD [Primary Care Provider] - Angeles Bravo MD [Physician] - 2 Weeks Discharge Medications: Continued pravastatin 40 mg tablet 40 mg PO DAILY RF: 0 amlodipine-benazepril 10-20 mg capsule 1 cap PO DAILY RF: 0 Discharge Orders: Discharge Order (Routine); Ordered 04/20/20 Ordered By: Eren Mason Activity on Discharge: RUE rest Patient Instructions: Cellulitis (ED) Visit Report Forms: Patient Portal Discharge page Care Plan Goals: recovery Health Concerns: right scapholunate ligament injury Plan of Treatment: rest, Advil/motrin as directed, monitor for fevers/worsening symptoms, follow up with hand surgeon, can use splint if helpful
== END 2020-04-20 14:39 | disposition home or self-care (01) ==
LOC: HO.ED 23:24 → HO.S3 04-20 07:25
PROVIDERS: Admitting Provider Internal Medicine; Emergency Provider Emergency Medicine; PCP Internal Medicine; Visit Provider Internal Medicine
DX: L03.113 Cellulitis of right upper limb (principal); I10 Essential (primary) hypertension; E78.5 Hyperlipidemia, unspecified; S63.391A Traumatic rupture of other ligament of right wrist, initial encounter; X58.XXXA Exposure to other specified factors, initial encounter; Y93.9 Activity, unspecified; Y92.9 Unspecified place or not applicable; Y99.8 Other external cause status; D72.829 Elevated white blood cell count, unspecified; Z20.828 Contact with and (suspected) exposure to other viral communicable diseases; Z79.899 Other long term (current) drug therapy
CPT/HCPCS: 36415; 73201; 80048; 80307; 81001; 83605; 85025; 87040; 87635; 96361; 96365; 96367; 96375; 99218; 99285; J0690; J2543; J3370; Q9967

== ENCOUNTER 2021-06-28 08:32 | Outpatient (REF) | payer BC, SELFPAY ==
[2021-06-28 08:51] LABS: COVID-19 Test Positive (Negative); IDNOW Serial# 16C4AD1C
== END 2021-06-28 08:33 | disposition home or self-care (01) ==
LOC: HO.LAB 08:32
PROVIDERS: Visit Provider Internal Medicine
DX: Z20.822 Contact with and (suspected) exposure to COVID-19 (principal)
CPT/HCPCS: 87635; C9803

== ENCOUNTER 2021-07-06 22:00 | Emergency (ER) | payer BC, SELFPAY ==
--- NOTE | ~2021-07-06 | CT_ITS ---
STUDY PERFORMED: CTA OF THE CHEST, ABDOMEN AND PELVIS WITH AND WITHOUT CONTRAST CLINICAL INFORMATION: Reason for Exam Sudden-onset abdominal and back pain DESCRIPTION: Initial noncontrast CT of the chest was performed. Contrast timing was performed at the level of the distal descending thoracic aorta. Subsequently, arterial phase multidetector volumetric imaging was performed through the chest, abdomen and pelvis following the administration of 70 mL Omnipaque 350 intravenous contrast. No contrast reaction reported Sagittal and coronal reformatted images were obtained on the technologist workstation. Three-dimensional MIP reformatted imaging was performed and reviewed. This CT examination was performed using dose optimization techniques as appropriate, variously including the following: *Automated exposure control *Adjustment of mA and/or kV according to patient size (this includes techniques or standardized protocols for targeted exams where dose is matched to indication/reason for exam; i.e. extremities or head) *Use of iterative reconstruction technique Total exam dose-length product 326 mGy-cm COMPARISON: None FINDINGS: VASCULAR: 1. 3 cusped aortic valve. Normal origins of the main coronary arteries. The ascending thoracic aorta is normal in course and caliber without dissection. 2. The aortic arch is normal in course and caliber without dissection. Normal 3 vessel branching configuration. 3. The descending thoracic aorta is normal in course and caliber without dissection. 4. The abdominal aorta, iliac vessels, and visualized femoral vasculature are normal in course and caliber without dissection. 5. The celiac axis, superior mesenteric artery, and inferior mesenteric artery origins are widely patent. 6. Single left and 2 right-sided renal arteries are widely patent. 7. The pulmonary arteries are not well evaluated due to bolus timing. Nonvascular: CHEST: LUNG/PLEURA: The central airways are patent. Mild centrilobular emphysema. Dependent atelectasis, particularly on the right. No focal consolidation, nodules or masses. No pleural effusion or pneumothorax. MEDIASTINUM: Normal heart size. No pericardial effusion. No hilar or mediastinal lymphadenopathy. CHEST WALL/AXILLA: No axillary or internal mammary lymphadenopathy. No chest wall mass. ABDOMEN AND PELVIS: LIVER, GALLBLADDER, AND BILIARY TREE: The liver is normal in size, shape, and attenuation. No focal hepatic lesion or biliary ductal dilatation is present. The gallbladder is unremarkable with no evidence of radiopaque gallstones, gallbladder wall thickening, or obvious pericholecystic inflammatory changes. PANCREAS: Unremarkable. SPLEEN: Unremarkable. ADRENAL GLANDS: Unremarkable. KIDNEYS AND URETERS: The kidneys are normal in size, shape, and attenuation. There is mild left hydronephrosis. There is a 0.8 cm calculus at the left ureteropelvic junction, 15 cm from the posterior axillary line. This measures 700 Hounsfield units. Left perinephric stranding. Somewhat delayed left nephrogram. No additional calculi. Retroaortic left renal vein. BLADDER: Bladder diverticulum posteriorly with layering internal calculi. No bladder wall thickening. GASTROINTESTINAL TRACT: The stomach is unremarkable. Normal caliber small bowel. No obstruction. The appendix is not seen. No colonic wall thickening or inflammatory change. ABDOMINAL WALL: No significant hernia is appreciated. LYMPH NODES: Normal. PELVIC VISCERA: Calcifications in the prostate. Seminal vesicles unremarkable. OSSEOUS STRUCTURES: No acute or suspicious osseous abnormality. Mild degenerative changes of the spine. Posterior fusion hardware at L5-S1. CT/CT angio abdomen pelvis IMPRESSION: 1. No dissection. No acute vascular abnormality. 2. Left mild hydronephrosis with obstructing 0.8 cm calculus at the ureteropelvic junction.
--- NOTE | ~2021-07-06 | FL_ITS ---
EXAMINATION: XR FLUOROSCOPY WITH IMAGES CLINICAL INFORMATION: Left ureteral stent placement. COMPARISON: CTA of the chest, abdomen and pelvis dated 07/07/2021 TECHNIQUE: Fluoroscopy performed by Dr. Andrews. Fluoroscopy time: 45.7 seconds Dose: 20.46 mGy Images: 3 FL/FL guidance in OR FINDINGS/IMPRESSION: A left ureteral stent was seen in place on the final images. Please refer to the procedure report for more detailed findings.
--- NOTE | 2021-07-06 22:02 | ED_ITS ---
HPI - General Adult General Chief complaint: Nausea/Vomiting/Diarrhea Stated complaint: multiple complaints ,covid + Time Seen by Provider: 07/06/21 22:02 Source: patient and EMS Mode of arrival: EMS Limitations: no limitations History of Present Illness HPI narrative: Patient is a 56 year old male presenting to the emergency department today with back pain and abdominal pain. Patient states that earlier tonight, at dinner, he began to experience immediate back pain, abdominal pain, nausea, vomiting, and diaphoresis. Patient denies any chest pain. 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 Patient states that he has chronic back pain however, he does not usually need to take anything for it. Patient denies feeling any ripping or tearing sensations. Patient denies any dizziness, lightheadedness, fever, chills, blurry vision, double vision, loss of vision, chest pain, difficulty breathing, shortness of breath, night sweats, pain with urination, increased urinary frequency, increased urinary urgency, blood in his urine or stool, syncope or a near syncopal episode, recent trauma or falls, bowel incontinence, bladder incontinence, bowel retention, bladder retention, or any other complain ts at this time. Onset (ago): hour(s) Location: back and abdomen Radiation: non-radiation Severity: mild Severity scale (1-10): 5 Quality: constant Pain Consistency: constant Relieving factors: none Exacerbating factors: none Associated symptoms: denies other symptoms Related Data Home Medications Medication Instructions Recorded Confirmed amlodipine 10 mg-benazepril 20 mg 1 cap PO DAILY 04/19/20 04/19/20 capsule pravastatin 40 mg tablet 40 mg PO DAILY 04/19/20 04/19/20 Allergies Allergy/AdvReac Type Severity Reaction Status Date / Time No Known Allergies Allergy Verified 04/19/20 20:23 Review of Systems Verdana 4l Constitutional: Verdana 4d Verdana 4d Constitutional: Verdana 4d Reports no additional constitutional complaints, Denies chills, Denies fever(s) and Denies night sweats Verdana 4l Eyes: Verdana 4d Verdana 4d Eyes: Verdana 4d Reports no additional eye complaints, Denies blurry vision, Denies change in vision, Denies diplopia, Denies eye discharge, Denies loss of vision and Denies eye pain Verdana 4l ENT: Verdana 4d Denies dizziness Verdana 4l Cardiovascular: Verdana 4d Verdana 4d Cardiovascular: Verdana 4d Reports no additional cardiovascular complaints, Denies chest pain, Denies lightheadedness, Denies Loss of Consciousness and Denies dyspnea Verdana 4l Respiratory: Verdana 4d Verdana 4d Respiratory: Verdana 4d Reports no additional respiratory complaints and Denies dyspnea Verdana 4l Gastrointestinal: Verdana 4d Verdana 4d Gastrointestinal: Verdana 4d Reports no additional gastrointestinal complaints, Reports abdominal pain, Denies melena, Denies hematochezia, Denies change in bowel habits, Denies change in stool character, Reports nausea and Reports vomitingvomiting Genitourinary: Genitourinary: Reports no additional male genitourinary complaints, Denies hematuria, Denies oliguria, Denies difficulty urinating, Denies dysuria, Denies urinary frequency, Denies urinary hesitancy, Denies urinary incontinence and Denies urinary urgency Musculoskeletal: Musculoskeletal: Reports no additional musculoskeletal complaints, Reports back pain, Denies numbness and Denies tingling Neurologic: Denies dizziness, Denies loss of vision, Denies numbness and Denies tingling Psychiatric: Psychiatric: Reports no additional psychiatric complaints Endocrine: Endocrine: Reports no additional endocrine complaints Hematologic/Lymphatic: Hematologic/Lymphatic: Reports no additional hematologic/lymphatic complaints Allergic/Immunologic: Allergic/Immunologic: Reports no additional allergic/immunologic complaints [facility] Past Medical History Attestation statement: The following information was validated with the patient. Source: old records reviewed Medical History HTN (hypertension) Hyperlipidemia Social History Social History Alcohol intake: never Advance Directives: No Advance Directives Information Provided: No service: No Current occupational status: employed Physical Exam Verdana 4l Vital Signs: Verdana 4d Verdana 4d Vital Signs: Verdana 4d Verdana 4Bd Last Vital Signs Verdana 4d Indirect Sales Representative New 4d Indirect Sales Representative New 4d Temp 98.8 F 07/06/21 22:22 Indirect Sales Representative New 4d Pulse 90 07/07/21 01:12 Indirect Sales Representative New 4d Resp 14 07/07/21 01:12 BP 147/79 H 07/07/21 01:12 Pulse Ox 97 07/07/21 01:12 BMI result Body Mass Index 33.6 Const: General: cooperative, no acute distress, alert and awake Nutritional Appearance: well nourished Orientation/consciousness: patient oriented x3 Limitations: no limitations HENMT: Head: Yes normal to inspection and Yes atraumatic Ears: hearing grossly normal bilaterally and external ears normal General nose exam: Normal external nose present, no nasal discharge noted and no epistaxis Face and sinus: Yes normal facial exam, No abrasion and No laceration Mouth: Normal oral and palatal mucosa present, no drooling and no muffled voice Eyes: General: appearance normal, both eyes and all related structures Periorbital: periorbital findings normal Eyelids: Yes eyelids normal Conjunctivae: conjunctivae normal Pupils: Equal, round and reactive pupils present EOM: EOMs intact bilaterally Neck: Neck: Yes normal visual inspection, Yes full ROM and Yes no lymphadenopathy Chest: Chest palpation & inspection: normal inspection of the chest Resp: Effort & Inspection: normal respiratory effort and able to speak in complete sentences Auscultation: clear to auscultation bilaterally Cardio: Rate: regular rate Rhythm: regular rhythm GI: Inspection: Yes normal to inspection Palpation (GI): Soft to palpation, Firmness to palpation present (GI) and Tenderness to palpation present (GI) in the LLQ Neuro: General: patient oriented x3 and moves all extremities Cranial nerves: Yes Equal, round and reactive pupils present Cognition (Neuro): normal cognition Motor exam (neuro): 5/5 motor strength present throughout Sensory Exam: Normal double simultaneous stimulation for sensation Coordination: [id number] test normal Extrem: General: Yes normal to inspection, Yes full ROM and Yes capillary refill normal Psych: Appearance: grossly normal Mental Status: mental status grossly normal Affect: normal affect Attitude: cooperative Thought process: Normal thought process present Thought content: Normal thought content present Insight: Good insight present (Psych) Course Course Course Narrative: Patient's CT chest and abdomen were interpreted by radiologist as: No dissection. No acute vascular abnormality. Left mild hydronephrosis with obstructing 0.8 cm calculus at the ureteropelvic junction. Consultations Consultation #1: Has spoke to Dr. Andrews, the urologist on-call, who acknowledged receiving the message. Time: 01:51 Medical Decision Making [facility] Narrative Medical decision making narrative: Patient is a 56 year old male presenting to the emergency department today with nausea, vomiting, back pain, and abdominal pain. Patient's physical exam showed an obviously uncomfortable male. Patient's blood work showed leukocytosis which seems to be chronic for the patient, normal kidney function, and elevated lactic acid. Patient's urine is still pending. Patient's EKG was unremarkable. Patient's abdominal, pelvis, and chest CT showed no dissection, no acute vascular abnormality, left mild hydronephrosis with obstructing 0.8 cm calculus at the ureteropelvic junction. I spoke to Dr. Andrews, their cupola tender chemical detection expert, who acknowledged the patient was in the emergency department and he received messages about the patient. I explained my physical exam findings as well as all test results to the patient. I answered all questions asked by the patient. Patient received IV fluids and Toradol which he stated helped his symptoms significantly. Patient verbalized agreement and understanding with this treatment plan and admission. I signed the patient out to Dr. Vega, pending possible admission. Differential Diagnosis Differential Diagnosis: Abdominal pain, nausea, vomiting, aortic dissection, diverticulitis, kidney Medical Records Medical records reviewed: Yes I reviewed the patient's medical records. Lab Data Lab results reviewed: Yes I reviewed the patient's lab results. Lab results narrative: Patient has chronic leukocytosis. Result diagrams: 07/06/21 22:53 07/06/21 22:53 Labs: Lab Results 07/06/21 07/06/21 07/06/21 Range/Units 22:53 22:53 22:53 WBC 16.2 H (4.8-10.8) X10*3/uL RBC 4.56 L (4.60-5.80) X10*6/uL Hgb 14.3 (14.0-18.0) g/dl Hct 41.9 L (42.0-52.0) % MCV 91.9 (80.0-98.0) fL MCH 31.4 (27.0-33.0) pg MCHC 34.1 (31.0-36.0) g/dl RDW 12.7 (11.0-16.0) % Plt Count 248 (160-400) X10*3/uL MPV 9.4 (9.4-12.4) fL Immature Gran % (Auto) 0.4 (0.0-0.4) % Neut % (Auto) 88.6 H (45-73) % Lymph % (Auto) 5.7 L (20-40) % [place] % (Auto) 5.0 (2-11) % Eos % (Auto) 0.1 (0-4) % Baso % (Auto) 0.2 (0-2) % Lymph # (Auto) 0.9 L (1.2-4.9) X10*3/uL [place] # (Auto) 0.8 (0.1-1.2) X10*3/uL Eos # (Auto) 0.0 (0.0-0.4) X10*3/uL Baso # (Auto) 0.0 (0.0-0.2) X10*3/uL Abs Immat Gran (auto) 0.07 H (0.00-0.03) X10*3/uL Absolute Neuts (auto) 14.4 H (2.0-8.3) x10*3/uL Absolute Nucleated RBC 0.000 (0.0-0.012) X10*3/uL Nucleated RBC % (auto) 0.0 (0.0-0.2) /100WBC Sodium 135 (135-145) mmol/L Potassium 4.0 (3.3-5.1) mmol/L Chloride 102 (96-108) mmol/L Carbon Dioxide 22 (22-29) mmol/L Anion Gap 15 (12-20) BUN 15 (9-16) mg/dL Creatinine 0.98 (0.5-1.4) mg/dL Estim Creat Clear Calc 77.8 Estimated GFR > 60 Fasting Glucose 151 H (60-99) mg/dL Lactic Acid 2.7 H* (0.5-2.0) mmol/L Calcium 8.9 D (8.4-10.2) mg/dL Magnesium 1.8 (1.6-2.6) mg/dL Total Bilirubin 0.5 (0.0-1.0) mg/dL AST 19 (5-37) U/L ALT 23 (0-40) U/L Alkaline Phosphatase 47 (39-117) U/L Troponin I High Sens (<3.5-35.0) ng/L Total Protein 6.7 (6.5-8.0) g/dL Albumin 4.0 (3.5-5.0) g/dL Urine Color Urine Appearance Urine pH (5.0-8.0) Ur Specific [place] (1.005-1.025) Urine Protein (NEG-TRACE) MG/DL Urine Glucose (UA) (NEG) MG/DL Urine Ketones (NEG) MG/DL Urine Blood (NEG) Urine Nitrite (NEG) Ur Leukocyte Esterase (NEG) Urine RBC (0) /HPF Urine WBC (0-4) /HPF Ur Squamous Epith Cells /LPF Amorphous Sediment /LPF Urine Bacteria /LPF Urine Mucus /LPF 07/06/21 07/07/21 Range/Units 22:53 01:22 WBC (4.8-10.8) X10*3/uL RBC (4.60-5.80) X10*6/uL Hgb (14.0-18.0) g/dl Hct (42.0-52.0) % MCV (80.0-98.0) fL MCH (27.0-33.0) pg MCHC (31.0-36.0) g/dl RDW (11.0-16.0) % Plt Count (160-400) X10*3/uL MPV (9.4-12.4) fL Immature Gran % (Auto) (0.0-0.4) % Neut % (Auto) (45-73) % Lymph % (Auto) (20-40) % [place] % (Auto) (2-11) % Eos % (Auto) (0-4) % Baso % (Auto) (0-2) % Lymph # (Auto) (1.2-4.9) X10*3/uL [place] # (Auto) (0.1-1.2) X10*3/uL Eos # (Auto) (0.0-0.4) X10*3/uL Baso # (Auto) (0.0-0.2) X10*3/uL Abs Immat Gran (auto) (0.00-0.03) X10*3/uL Absolute Neuts (auto) (2.0-8.3) x10*3/uL Absolute Nucleated RBC (0.0-0.012) X10*3/uL Nucleated RBC % (auto) (0.0-0.2) /100WBC Sodium (135-145) mmol/L Potassium (3.3-5.1) mmol/L Chloride (96-108) mmol/L Carbon Dioxide (22-29) mmol/L Anion Gap (12-20) BUN (9-16) mg/dL Creatinine (0.5-1.4) mg/dL Estim Creat Clear Calc Estimated GFR Fasting Glucose (60-99) mg/dL Lactic Acid (0.5-2.0) mmol/L Calcium (8.4-10.2) mg/dL Magnesium (1.6-2.6) mg/dL Total Bilirubin (0.0-1.0) mg/dL AST (5-37) U/L ALT (0-40) U/L Alkaline Phosphatase (39-117) U/L Troponin I High Sens 4.6 (<3.5-35.0) ng/L Total Protein (6.5-8.0) g/dL Albumin (3.5-5.0) g/dL Urine Color YELLOW Urine Appearance HAZY Urine pH 8.0 (5.0-8.0) Ur Specific [place] 1.010 (1.005-1.025) Urine Protein NEG (NEG-TRACE) MG/DL Urine Glucose (UA) NEG (NEG) MG/DL Urine Ketones 5 (NEG) MG/DL Urine Blood 3+ H (NEG) Urine Nitrite NEG (NEG) Ur Leukocyte Esterase NEG (NEG) Urine RBC 50-75 H (0) /HPF Urine WBC 0-2 (0-4) /HPF Ur Squamous Epith Cells 1+ /LPF Amorphous Sediment 1+ /LPF Urine Bacteria TRACE /LPF Urine Mucus TRACE /LPF Discharge Plan Discharge Clinical Impression: Kidney calculi Patient Disposition: Still a Patient Prescriptions: No Action pravastatin 40 mg tablet 40 mg PO DAILY 0RF amlodipine-benazepril 10-20 mg capsule 1 cap PO DAILY 0RF Print Language: Yi
--- NOTE | 2021-07-06 22:07 | ECG_ITS ---
Test Reason : VOMIT/ABD PAIN Blood Pressure : / mmHG Vent. Rate : 084 BPM Atrial Rate : 084 BPM P-R Int : 174 ms QRS Dur : 082 ms QT Int : 384 ms P-R-T Axes : 058 015 050 degrees QTc Int : 453 ms Normal sinus rhythm Normal ECG No previous ECGs available Referred By: Joan Banda Electronically Signed By:BELINDA RIOS MD
[2021-07-06 22:22] VITALS: BP 147/83; PULSE 91; RESP 22; TEMP 37.1; O2SAT 99; BMI 33.6
[2021-07-06] MEDS: Ketorolac Tromethamine 30 MG/ML VIAL IVPUSH (22:35)
[2021-07-06 22:48] VITALS: BP 159/90
[2021-07-06 22:59] LABS: MANUAL DIFF FLAG NO
[2021-07-06 23:01] LABS: Basophils Percent Auto 0.2 % (0-2); Eosinophils Percent Auto 0.1 % (0-4); Hematocrit 41.9 % (42.0-52.0); Hemoglobin 14.3 g/dl (14.0-18.0); Imm Gran Abs Auto 0.07 X10*3/uL (0.00-0.03); Imm Gran Pct Auto 0.4 % (0.0-0.4); Lymphocytes Absolute Auto 0.9 X10*3/uL (1.2-4.9); Lymphocytes Percent Auto 5.7 % (20-40); Mean Corpuscular HGB Conc 34.1 g/dl (31.0-36.0); Mean Corpuscular Hemoglobin 31.4 pg (27.0-33.0); Mean Corpuscular Volume 91.9 fL (80.0-98.0); Mean Platelet Volume 9.4 fL (9.4-12.4); Monocytes Absolute Auto 0.8 X10*3/uL (0.1-1.2); Neutrophils Absolute Auto 14.4 x10*3/uL (2.0-8.3); Neutrophils Percent Auto 88.6 % (45-73); Platelet Count 248 X10*3/uL (160-400); Red Blood Count 4.56 X10*6/uL (4.60-5.80); Red Cell Distribution Width 12.7 % (11.0-16.0); White Blood Count 16.2 X10*3/uL (4.8-10.8)
[2021-07-06 23:19] LABS: Alanine Aminotransferase 23 U/L (0-40); Alkaline Phosphatase 47 U/L (39-117); Anion Gap 15 (12-20); Aspartate Amino Transferase 19 U/L (5-37); Bilirubin Total 0.5 mg/dL (0.0-1.0); Blood Urea Nitrogen 15 mg/dL (9-16); Calcium 8.9 mg/dL (8.4-10.2); Carbon Dioxide 22 mmol/L (22-29); Chloride 102 mmol/L (96-108); Creatinine Clr Calc Pharmacy 77.8; Estimated Glomerular Filt Rate > 60; Glucose Fasting 151 mg/dL (60-99); Magnesium 1.8 mg/dL (1.6-2.6); Sodium 135 mmol/L (135-145); Total Protein 6.7 g/dL (6.5-8.0)
[2021-07-06 23:22] LABS: Lactic Acid 2.7 mmol/L (0.5-2.0)
[2021-07-06] MEDS: 0.9 % Sodium Chloride 1,000 ML 999 ML IVCONT (23:23)
[2021-07-06 23:25] LABS: Troponin-I High Sensitivity 4.6 ng/L (<3.5-35.0)
[2021-07-07] VITALS (20 sets, daily range): BP systolic 117–159; BP diastolic 65–105; PULSE 74–97; RESP 10–22; TEMP 36.4–37.2; O2SAT 92–100
[2021-07-07 00:59] LABS: Reflex Lactate? Lactic Acid Added
[2021-07-07] MEDS: iohexoL 350 MG/ML 100 ML INFUS..BTL 70 ML IV (01:08)
[2021-07-07 01:31] LABS: Appearance Urine HAZY; Color Urine YELLOW; Glucose Urine UA NEG (NEG); Leukocyte Esterase Urine NEG (NEG); Nitrite Urine NEG (NEG); UACC Culture Trigger NO; Urine Blood 3+ (NEG); Urine Ketones 5 MG/DL (NEG); Urine Protein NEG (NEG-TRACE)
[2021-07-07 01:36] LABS: WBC Urine 0-2 /HPF (0-4)
[2021-07-07 01:37] LABS: Amorphous Sediment Urine 1+ /LPF; Bacteria Urine TRACE /LPF; Mucus Urine TRACE /LPF; RBC Urine 50-75 /HPF (0); Squamous Epithelial Cell Urine 1+ /LPF
[2021-07-07 02:05] LABS: ~Lactic Acid-LAB USE ONLY 2.2 mmol/L (0.5-2.0)
[2021-07-07] MEDS: 0.9 % Sodium Chloride 1,000 ML 75 ML IVCONT (02:07)
[2021-07-07] MEDS: ondansetron HCL 4 MG/2 ML VIAL IVPUSH ×2 (02:11→17:01)
[2021-07-07] MEDS: Morphine Sulfate 4 MG/ML CARTRIDGE IVPUSH ×4 (02:11→17:02)
[2021-07-07 02:13] LABS: COVID-19 Test Positive (Negative); IDNOW Serial# 9DD0AD1C
[2021-07-07 03:28] LABS: Reflex Lactate? 2 Y
[2021-07-07 04:46] LABS: ~Lactic Acid-LAB USE ONLY 1.2 mmol/L (0.5-2.0)
--- NOTE | 2021-07-07 08:59 | PC.NURSE ---
pt's page ([phone]) called [facility] and was updated on pt status.
--- NOTE | 2021-07-07 09:38 | PHA.MEDREC ---
Pharmacy Consult ? Medication Reconciliation Pharmacy has completed the medication reconciliation. There are no remarkable issues for provider's attention. Tati Patel, TrentD
[2021-07-07] MEDS: levoFLOXacin/D5W 500 MG/100 ML PIGGYBACK 100 MG IV (09:54)
--- NOTE | 2021-07-07 15:23 | PC.NURSE ---
pt received in bed, A/O x 4. states no pain, reynaldo is lithotripsy at 4p today. IVs patent and running well.
--- NOTE | 2021-07-07 16:15 | P.CNUR_ITS ---
History of Present Illness Consult details Consult date: 07/07/21 Narrative: Catracho is 56 year old male Admitted through emergency room with left-sided flank pain Had flank pain starting yesterday afternoon associated with nausea. Presented to hospital yesterday evening. Imaging KIDNEYS AND URETERS: The kidneys are normal in size, shape, and attenuation. There is mild left hydronephrosis. There is a 0.8 cm calculus at the left ureteropelvic junction, 15 cm from the posterior axillary line. This measures 700 Hounsfield units. Left perinephric stranding. Somewhat delayed left nephrogram. No additional calculi. Retroaortic left renal vein Lab work CBC 16.2, lactate 2.7 which is coming down to 2.2 with hydration Based on imaging findings and potential for infection recommend urine culture and stent placement Definitive stone procedure will be deferred until potential infection addressed Review of Systems Verdana 4l Constitutional: Verdana 4d Constitutional: Verdana 4d Verdana 4d Reports as per HPI and Reports no additional constitutional complaints Verdana 4l Cardiovascular: Verdana 4d Cardiovascular: Verdana 4d Verdana 4d Reports as per HPI and Reports no additional cardiovascular complaints Verdana 4l Respiratory: Verdana 4d Verdana 4d Respiratory: Verdana 4d Reports as per HPI and Reports no additional respiratory complaints Verdana 4l Gastrointestinal: Verdana 4d Gastrointestinal: Verdana 4d Verdana 4d Reports as per HPI and Reports no additional gastrointestinal complaints Verdana 4l Genitourinary: Verdana 4d Verdana 4d Genitourinary: Verdana 4d Reports as per HPI Verdana 4l Musculoskeletal: Verdana 4d Musculoskeletal: Verdana 4d Verdana 4d Reports no additional musculoskeletal complaints and Reports as per HPI Verdana 4l Neurologic: Verdana 4d Reports system reviewed and no additional complaints, except as documented and Reports as per HPI [facility] Past Medical History Medical History HTN (hypertension) Hyperlipidemia Social History Social History Alcohol intake: never Patient Tobacco Use Status: Never used Tobacco Use of substances other than those prescribed or required for medical reasons: No Advance Directives: No Advance Directives Information Provided: No service: No Current occupational status: employed Meds Allergies Allergy/AdvReac Type Severity Reaction Status Date / Time No Known Allergies Allergy Verified 04/19/20 20:23 Active Medications: Current Medications Sodium Chloride (Ns) 1,000 mls @ 75 mls/hr IVCONT .[id number] ALYCIA Last Admin: 07/07/21 02:07 Dose: 75 mls/hr Documented by: Morphine Sulfate (Morphine Sulfate 4 Mg/Ml Cartridge) 4 mg IVPUSH RQ4H PRN; Protocol PRN Reason: Pain, Moderate (Pain Scale 4-6 Last Admin: 07/07/21 14:10 Dose: 4 mg Documented by: Ondansetron HCl (Ondansetron Hcl 4 Mg/2 Ml Vial) 4 mg IVPUSH Q8H PRN PRN Reason: Nausea Last Admin: 07/07/21 02:11 Dose: 4 mg Documented by: Home Medications Medication Instructions Recorded Confirmed Last Taken Type amlodipine 10 1 cap PO BEDTIME 04/19/20 07/07/21 07/05/21 History mg-benazepril 20 mg capsule pravastatin 40 mg 40 mg PO BEDTIME 04/19/20 07/07/21 07/05/21 History tablet acetaminophen 325 650 mg PO Q6H 07/07/21 07/07/21 07/06/21 History mg tablet PRN Physical Exam Verdana 4l Vital Signs: Verdana 4d Verdana 4d Vital Signs: Verdana 4d Verdana 4Bd Last Vital Signs Verdana 4d Application Support Consultant New 4d Application Support Consultant New 4d Temp 97.7 F 07/07/21 13:40 Application Support Consultant New 4d Pulse 86 07/07/21 15:22 Application Support Consultant New 4d Resp 14 07/07/21 15:22 BP 132/65 07/07/21 15:22 Pulse Ox 97 07/07/21 14:28 BMI result Body Mass Index 33.6 Const: General: cooperative, healthy appearing, comfortable and no acute distress Orientation/consciousness: patient oriented x3 HENMT: Face and sinus: Yes normal facial exam Mouth: moist mucous membranes Neck: Neck: Yes normal visual inspection, Yes full ROM and Yes trachea midline Chest: Chest palpation & inspection: normal inspection of the chest Resp: Effort & Inspection: normal respiratory effort, able to speak in complete sentences and no respiratory distress GI: Inspection: Yes normal to inspection Back/Spine/Pelvis: Cervical Spine: normal cervical lordosis Thoracic/Lumbar Spine: thoracic and lumbar spine normal to inspection Skin: General skin exam: no rashes or lesions noted Neuro: General: patient oriented x3, tone normal and moves all extremities Extrem: General: Yes normal to inspection and Yes capillary refill normal Results Labs Result diagrams: 07/06/21 22:53 07/06/21 22:53 Labs: Abnormal lab results 07/06/21 07/06/21 07/06/21 Range/Units 22:53 22:53 22:53 WBC 16.2 H (4.8-10.8) X10*3/uL RBC 4.56 L (4.60-5.80) X10*6/uL Hct 41.9 L (42.0-52.0) % Neut % (Auto) 88.6 H (45-73) % Lymph % (Auto) 5.7 L (20-40) % Lymph # (Auto) 0.9 L (1.2-4.9) X10*3/uL Abs Immat Gran (auto) 0.07 H (0.00-0.03) X10*3/uL Absolute Neuts (auto) 14.4 H (2.0-8.3) x10*3/uL Fasting Glucose 151 H (60-99) mg/dL Lactic Acid 2.7 H* (0.5-2.0) mmol/L Lactic Acid F/U @ 2Hr (0.5-2.0) mmol/L Urine Blood (NEG) Urine RBC (0) /HPF COVID-19 ([facility]) (Negative) 07/07/21 07/07/21 07/07/21 Range/Units : 01:25 01:56 WBC (4.8-10.8) X10*3/uL RBC (4.60-5.80) X10*6/uL Hct (42.0-52.0) % Neut % (Auto) (45-73) % Lymph % (Auto) (20-40) % Lymph # (Auto) (1.2-4.9) X10*3/uL Abs Immat Gran (auto) (0.00-0.03) X10*3/uL Absolute Neuts (auto) (2.0-8.3) x10*3/uL Fasting Glucose (60-99) mg/dL Lactic Acid (0.5-2.0) mmol/L Lactic Acid F/U @ 2Hr 2.2 H* (0.5-2.0) mmol/L Urine Blood 3+ H (NEG) Urine RBC 50-75 H (0) /HPF COVID-19 ([place]) Positive A (Negative) Short CBC 07/06/21 Range/Units 22:53 WBC 16.2 H (4.8-10.8) X10*3/uL Hgb 14.3 (14.0-18.0) g/dl Hct 41.9 L (42.0-52.0) % Plt Count 248 (160-400) X10*3/uL BMP 07/06/21 22:53 Sodium 135 Potassium 4.0 Chloride 102 Carbon Dioxide 22 BUN 15 Creatinine 0.98 Calcium 8.9 D Liver Function 07/06/21 Range/Units 22:53 Total Bilirubin 0.5 (0.0-1.0) mg/dL AST 19 (5-37) U/L ALT 23 (0-40) U/L Alkaline Phosphatase 47 (39-117) U/L Albumin 4.0 (3.5-5.0) g/dL Urine 07/07/21 Range/Units 01:22 Urine Color YELLOW Urine Appearance HAZY Urine pH 8.0 (5.0-8.0) Ur Specific [place] 1.010 (1.005-1.025) Urine Protein NEG (NEG-TRACE) MG/DL Urine Glucose (UA) NEG (NEG) MG/DL All other labs normal. Assessment and Plan (1) Kidney calculi: Status: Acute (2) SIRS (systemic inflammatory response syndrome): Status: Acute Plan Cystoscopy, left retrograde, left stent placement Risks, benefits and alternatives to therapy were discussed. These include but are not limited to infection, bleeding, damage to local organs and tissues, need for further interventions. Anesthetic risks regarding cardiac arrhythmia, blood clots, and potential mortality were discussed. The patient understands the typical recovery time and the outpatient nature of the procedure. After consideration of these risks the patient gives full informed consent and they wish to move ahead with the procedure. Procedures Date of Service Date of Service: 07/07/21
--- NOTE | 2021-07-07 16:37 | HO.ANESPROP2 ---
[facility] Active Problems Active Problems: All Active Problems (Updated 07/07/21 @ 16:26 by Michael Andrews MD) SIRS (systemic inflammatory response syndrome) (Acute) Kidney calculi (Acute) Scapholunate ligament injury with no instability (Acute) HTN (hypertension) (Acute) Past Medical History Medical History HTN (hypertension) Hyperlipidemia Family History Family history of problems with anesthesia: No Surgical History History of Problems with Anesthesia: No Social History Social History Alcohol intake: never Patient Tobacco Use Status: Never used Tobacco Use of substances other than those prescribed or required for medical reasons: No Advance Directives: No Advance Directives Information Provided: No service: No Current occupational status: employed Meds Allergies Allergy/AdvReac Type Severity Reaction Status Date / Time No Known Allergies Allergy Verified 04/19/20 20:23 Active Medications: Current Medications Sodium Chloride (Ns) 1,000 mls @ 75 mls/hr IVCONT .[id number] ALYCIA Last Admin: 07/07/21 02:07 Dose: 75 mls/hr Documented by: Morphine Sulfate (Morphine Sulfate 4 Mg/Ml Cartridge) 4 mg IVPUSH RQ4H PRN; Protocol PRN Reason: Pain, Moderate (Pain Scale 4-6 Last Admin: 07/07/21 14:10 Dose: 4 mg Documented by: Ondansetron HCl (Ondansetron Hcl 4 Mg/2 Ml Vial) 4 mg IVPUSH Q8H PRN PRN Reason: Nausea Last Admin: 07/07/21 02:11 Dose: 4 mg Documented by: Home Medications Medication Instructions Recorded Confirmed Last Taken Type amlodipine 10 mg-benazepril 20 mg 1 cap PO BEDTIME 04/19/20 07/07/21 07/05/21 History capsule pravastatin 40 mg tablet 40 mg PO BEDTIME 04/19/20 07/07/21 07/05/21 History acetaminophen 325 mg tablet 650 mg PO Q6H PRN 07/07/21 07/07/21 07/06/21 History Exam Exam Date and Time: July 07, 2021 1637 Height,Weight and Vital Signs: Height 5 ft 2 in Weight 83.461 kg Last Vital Signs Temp 97.7 F 07/07/21 13:40 Pulse 86 07/07/21 15:22 Resp 14 07/07/21 15:22 BP 132/65 07/07/21 15:22 Pulse Ox 97 07/07/21 14:28 Pertinent Lab Results Pertinent Lab Results: Laboratory Tests 07/06/21 07/06/21 07/06/21 22:53 22:53 22:53 WBC 16.2 H RBC 4.56 L Hgb 14.3 Hct 41.9 L MCV 91.9 MCH 31.4 MCHC 34.1 RDW 12.7 Plt Count 248 MPV 9.4 Immature Gran % (Auto) 0.4 Neut % (Auto) 88.6 H Lymph % (Auto) 5.7 L [place] % (Auto) 5.0 Eos % (Auto) 0.1 Baso % (Auto) 0.2 Lymph # (Auto) 0.9 L [place] # (Auto) 0.8 Eos # (Auto) 0.0 Baso # (Auto) 0.0 Abs Immat Gran (auto) 0.07 H Absolute Neuts (auto) 14.4 H Absolute Nucleated RBC 0.000 Nucleated RBC % (auto) 0.0 Sodium 135 Potassium 4.0 Chloride 102 Carbon Dioxide 22 Anion Gap 15 BUN 15 Creatinine 0.98 Estim Creat Clear Calc 77.8 Estimated GFR > 60 Fasting Glucose 151 H Lactic Acid 2.7 H* Lactic Acid F/U @ 2Hr Lactic Acid F/U @ 4Hr Calcium 8.9 D Magnesium 1.8 Total Bilirubin 0.5 AST 19 ALT 23 Alkaline Phosphatase 47 Troponin I High Sens Total Protein 6.7 Albumin 4.0 Urine Color Urine Appearance Urine pH Ur Specific [place] Urine Protein Urine Glucose (UA) Urine Ketones Urine Blood Urine Nitrite Ur Leukocyte Esterase Urine RBC Urine WBC Ur Squamous Epith Cells Amorphous Sediment Urine Bacteria Urine Mucus COVID-19 ([facility]) COVID-19 Clin Com 07/06/21 07/07/21 07/07/21 22:53 01:22 01:25 WBC RBC Hgb Hct MCV MCH MCHC RDW Plt Count MPV Immature Gran % (Auto) Neut % (Auto) Lymph % (Auto) [place] % (Auto) Eos % (Auto) Baso % (Auto) Lymph # (Auto) [place] # (Auto) Eos # (Auto) Baso # (Auto) Abs Immat Gran (auto) Absolute Neuts (auto) Absolute Nucleated RBC Nucleated RBC % (auto) Sodium Potassium Chloride Carbon Dioxide Anion Gap BUN Creatinine Estim Creat Clear Calc Estimated GFR Fasting Glucose Lactic Acid Lactic Acid F/U @ 2Hr 2.2 H* Lactic Acid F/U @ 4Hr Calcium Magnesium Total Bilirubin AST ALT Alkaline Phosphatase Troponin I High Sens 4.6 Total Protein Albumin Urine Color YELLOW Urine Appearance HAZY Urine pH 8.0 Ur Specific [place] 1.010 Urine Protein NEG Urine Glucose (UA) NEG Urine Ketones 5 Urine Blood 3+ H Urine Nitrite NEG Ur Leukocyte Esterase NEG Urine RBC 50-75 H Urine WBC 0-2 Ur Squamous Epith Cells 1+ Amorphous Sediment 1+ Urine Bacteria TRACE Urine Mucus TRACE COVID-19 ([facility]) COVID-19 Clin Com 07/07/21 07/07/21 01:56 04:15 WBC RBC Hgb Hct MCV MCH MCHC RDW Plt Count MPV Immature Gran % (Auto) Neut % (Auto) Lymph % (Auto) [place] % (Auto) Eos % (Auto) Baso % (Auto) Lymph # (Auto) [place] # (Auto) Eos # (Auto) Baso # (Auto) Abs Immat Gran (auto) Absolute Neuts (auto) Absolute Nucleated RBC Nucleated RBC % (auto) Sodium Potassium Chloride Carbon Dioxide Anion Gap BUN Creatinine Estim Creat Clear Calc Estimated GFR Fasting Glucose Lactic Acid Lactic Acid F/U @ 2Hr Lactic Acid F/U @ 4Hr 1.2 Calcium Magnesium Total Bilirubin AST ALT Alkaline Phosphatase Troponin I High Sens Total Protein Albumin Urine Color Urine Appearance Urine pH Ur Specific [place] Urine Protein Urine Glucose (UA) Urine Ketones Urine Blood Urine Nitrite Ur Leukocyte Esterase Urine RBC Urine WBC Ur Squamous Epith Cells Amorphous Sediment Urine Bacteria Urine Mucus COVID-19 ([facility]) Positive A COVID-19 Clin Com See Note Airway Mallampati Class: II TM Dist: >3cm Neck ROM: Full Assessment and Plan Assessment Anesthesia Assessment: Anesthesia Plan Discussed Final Anesthetic Review Family History of Problems with Anesthesia: No History of Problems with Anesthesia: No NPO: Yes ASA Class: III Final Preanesthetic Review: Meds/Allgs Chart Reviewed, Consent Obtained/Reviewed and Anes Risks/Benef Reviewed Patient Risk: Intermediate Procedure Risk: Low Anesthetic Plan Anesthetic Plan: GA Disposition: Inp. Admit - [facility]
--- NOTE | 2021-07-07 17:44 | P.OP_ITS ---
Operative Note Operative Note Date of Service: 07/07/21 Narrative: PreOperative Diagnosis: Left obstructing UPJ stone, hydronephrosis Post Operative Diagnosis: Same Procedure: 1. Cystoscopy with left retrograde 2. Aspiration left renal pelvis 3. Left stent placement Surgeon: Dr Michael Andrews Anesthesia: Sedation Indications for procedure: 56-year-old male presents with nausea and left-sided flank pain. CT imaging 8 mm UPJ stone with normal creatinine. Elevated WBC 16.2, lactic acidosis which has responded to rehydration in emergency room. IV antibiotics have been given. Procedure: After informed consent was verified the patient was brought to the operating room and placed in a supine position. Anesthesia was administered per protocol. Patient was placed in modified dorsal lithotomy position and prepped and draped in sterile fashion. Safety pause time-out performed. Antibiotics with Levaquin given. Twenty-two [place] cystoscope inserted per urethra. Bladder was emptied. Ureteric orifices normal position. Left ureteric orifice cannulated and retrograde examination was performed. Filling defects seen at the left UPJ. Sensor guidewire placed. Some degree of tortuosity proximal to the stone. Open-ended catheter placed passed wire into renal pelvis. Renal pelvis aspirated and fluid sent for culture. Sensor guidewire placed back through open-ended catheter. Open-ended catheter removed. Six [place] by 22 cm double-J ureteric stent placed. Good coil seen on imaging and visualization. There was hydronephrotic drip with fluid exiting drain holes. He tolerated procedure well was extubated in operating room transferred in stable condition to the recovery area. Short course of Bactrim has been sent to pharmacy for 7 days. Will try to organize ESWL left side for next week. Urine was clear in post hydronephrotic drip and not suggestive of infection. Pathology: None Drains: [] Left 6 [place] by 20 cm double-J stent
--- NOTE | 2021-07-07 17:44 | MHC.SHP ---
Pre-Procedural Eval Section A Date of Service: 07/07/21 The patient is an INPATIENT: Yes Changes since office visit: No Cold of Flu in the past 2 weeks, No New Medical Problems, No Changes in Medication and No Patient answered all questions The History & Physical has been completed within 30 days and I have reviewed it.: Yes Section B Chief Complaint: multiple complaints ,covid + Allergies: Allergies Allergy/AdvReac Type Severity Reaction Status Date / Time No Known Allergies Allergy Verified 04/19/20 20:23 Plan Diagnosis/Plan: Unchanged (Cystoscopy, left stent placement) I have reviewed the history and physical and performed a pertinent physical examination on my patient. No changes have occurred unless specified.
[2021-07-07] MEDS: Acetaminophen 325 MG TABLET 650 MG PO (18:04)
[2021-07-07] MEDS: Phenazopyridine HCL 100 MG TABLET PO (18:04)
--- NOTE | 2021-07-07 18:45 | PC.NURSE ---
pt returned from OR s/p lithotripsy. Pt is A/O x 4, states no pain. Ready for discharge. Dr Cool aware. Pt will call widfe to give ride home
== END 2021-07-07 19:02 | disposition home or self-care (01) ==
PROVIDERS: Emergency Medicine; Physician Assistant Medical; Urology; Emergency Provider Emergency Medicine Emergency Medical Services
PROC: (CPT 52332; principal; 2021-07-07 16:00)
DX: N13.2 Hydronephrosis with renal and ureteral calculous obstruction (principal); R11.2 Nausea with vomiting, unspecified; U07.1 COVID-19; R65.10 Systemic inflammatory response syndrome (SIRS) of non-infectious origin without acute organ dysfunction; I10 Essential (primary) hypertension; E78.5 Hyperlipidemia, unspecified; R10.9 Unspecified abdominal pain; Z79.899 Other long term (current) drug therapy
CPT/HCPCS: 52332; 36415; 71275; 74174; 80053; 81001; 83605; 83735; 84484; 85025; 87040; 87071; 87205; 87635; 93005; 96361; 96374; 96375; 99285; C1758; C1769; C2617; J1885; J1956; J2270; J2405; J3010; Q9967

== ENCOUNTER 2021-07-12 07:00 | Day surgery (SDC) | payer BC, SELFPAY ==
--- NOTE | 2021-07-11 09:49 | HO.ANESPROP2 ---
Documented by User: Henna Howell NP 07/11/21 10:09 HPI - Anesthesia Eval Consult details Narrative: 56yo M for Left ESWL PMFSH Active Problems Active Problems: All Active Problems (Updated 07/08/21 @ 00:02 by Reyna Medina) SIRS (systemic inflammatory response syndrome) (Acute) Scapholunate ligament injury with no instability (Acute) HTN (hypertension) (Acute) Past Medical History Medical History HTN (hypertension) Hyperlipidemia Family History Family history of problems with anesthesia: No Surgical History History of Problems with Anesthesia: No Social History Social History Alcohol intake: never Patient Tobacco Use Status: Former Tobacco user Tobacco use type: Cigarette Smoked in Last 30 Days: No Use of substances other than those prescribed or required for medical reasons: No Are you DNR?: No Advance Directives: No Advance Directives Information Provided: Yes service: No Current occupational status: employed Meds Allergies Allergy/AdvReac Type Severity Reaction Status Date / Time No Known Allergies Allergy Verified 04/19/20 20:23 Home Medications Medication Instructions Recorded Confirmed Last Taken Type amlodipine 10 mg-benazepril 20 mg 1 cap PO BEDTIME 04/19/20 07/07/21 07/05/21 History capsule pravastatin 40 mg tablet 40 mg PO BEDTIME 04/19/20 07/07/21 07/05/21 History acetaminophen 325 mg tablet 650 mg PO Q6H PRN 07/07/21 07/07/21 07/06/21 History Exam Exam Date and Time: July 11, 2021 0949 Pertinent Lab Results Pertinent Lab Results: Laboratory Tests 07/06/21 07/06/21 22:53 22:53 WBC 16.2 H Hgb 14.3 Hct 41.9 L Plt Count 248 Sodium 135 Potassium 4.0 Chloride 102 Carbon Dioxide 22 BUN 15 Creatinine 0.98 Assessment and Plan Assessment Anesthesia Assessment: Chart Reviewed Final Anesthetic Review Family History of Problems with Anesthesia: No History of Problems with Anesthesia: No Documented by User: Josy Frances MD 07/12/21 09:44 PMFSH Past Medical History Medical History HTN (hypertension) Hyperlipidemia Social History Social History Alcohol intake: never Patient Tobacco Use Status: Former Tobacco user Tobacco use type: Cigarette Smoked in Last 30 Days: No Use of substances other than those prescribed or required for medical reasons: No Are you DNR?: No Advance Directives: No Advance Directives Information Provided: Yes service: No Current occupational status: employed Meds Allergies Allergy/AdvReac Type Severity Reaction Status Date / Time No Known Allergies Allergy Verified 04/19/20 20:23 Home Medications Medication Instructions Recorded Confirmed Last Taken Type amlodipine 10 mg-benazepril 20 mg 1 cap PO BEDTIME 04/19/20 07/07/21 07/05/21 History capsule pravastatin 40 mg tablet 40 mg PO BEDTIME 04/19/20 07/07/21 07/05/21 History acetaminophen 325 mg tablet 650 mg PO Q6H PRN 07/07/21 07/07/21 07/06/21 History Exam Airway Mallampati Class: II TM Dist: >3cm Neck ROM: Full Denture: Upper Heart: rrr Lungs: ctw Assessment and Plan Assessment Anesthesia Assessment: Anesthesia Plan Discussed and Chart Reviewed Final Anesthetic Review NPO: Yes ASA Class: II Final Preanesthetic Review: No Changes in Pt Med Stat, Meds/Allgs Chart Reviewed and Consent Obtained/Reviewed Patient Risk: Intermediate Procedure Risk: Intermediate Anesthetic Plan Anesthetic Plan: MAC: Disposition: Standard PACU
--- NOTE | ~2021-07-12 | XR_ITS ---
EXAMINATION: XR ABDOMEN KUB CLINICAL INDICATION: Urinary tract calculi. History left hydronephrosis secondary to 8 mm calculus at UPJ. COMPARISON: CTA abdomen 07/07/2021 TECHNIQUE: AP x2 views of the abdomen. FINDINGS: There is a left ureteral stent in position. The ureteral calculus is seen just lateral to the left transverse process L4, similar location to CT study. Bowel gas is unremarkable. The lung bases are clear. There are degenerative changes again seen lumbosacral spine with old fusion hardware lumbosacral junction. XR/XR KUB IMPRESSION: Left ureteral stent in position. Left ureteral calculus in similar location, level L4.
[2021-07-12 08:10] VITALS: BMI 33.6
--- NOTE | 2021-07-12 09:40 | P.HPSUR_ITS ---
Pre-Procedural Eval Section A Date of Service: 07/12/21 The patient is an INPATIENT: No Changes since office visit: No Cold of Flu in the past 2 weeks, No New Medical Problems, No Changes in Medication and No Patient answered all questions The History & Physical has been completed within 30 days and I have reviewed it.: Yes Section B Chief Complaint: kidney stone Details of Present Illness: Left ESWL Relevant Family History (Specify if Yes): No Relevant Social History: None Present Medications: see Short Stay Collaborative assessment Medical History: Significant History History of Previous Operations: Relevant previous surgery/procedure and date(s) Allergies: Allergies Allergy/AdvReac Type Severity Reaction Status Date / Time No Known Allergies Allergy Verified 04/19/20 20:23 Review of Systems Sugical H&P ROS: Negative: Constitution, Cardiovascular, Respiratory, Neurological, Psychiatric, Hem-Onc, Allergic/Immunologic, Gastrointestinal, Genitourinary, Musculoskeletal, Integumentary, Endocrine and Eyes/Ears/Nose/Throat Exam Surgical H&P Exam: Normal: HEENT, Normal: Heart, Normal: Lungs, Normal: Ext remities, Normal: Abdomen, Normal: Skin and Normal: Neurological Plan Diagnosis/Plan: Unchanged (Left ESWL) I have reviewed the history and physical and performed a pertinent physical examination on my patient. No changes have occurred unless specified.
--- NOTE | 2021-07-12 10:27 | P.OP_ITS ---
Operative Note Operative Note Date of Service: 07/12/21 Narrative: PreOperative Diagnosis: Left Renal stones Post Operative Diagnosis: Left ureteric stones Procedure: Left ureteric ESWL Surgeon: Dr Michael Andrews Anesthesia: mac/sedation Indications for procedure: The patient understands ESWL may be a staged procedure and subsequent inter vention may be required based on imaging after ESWL. They also understand there is a risk of bleeding to the kidney, infection, damage to adjacent organs, and stone migration following the procedure. - Imaging CT with 8 mm left UPJ stone - on follow-up imaging has stone in proximal portion of ureter Procedure: After informed consent was verified the patient was brought to the operating room and placed in a supine position. Anesthesia was performed per protocol. Safety pause time-out was performed. Imaging was displayed in the room and laterality confirmed. ESWL was performed. The 1st 500 shocks were performed at 60 hertz. These were performed with increasing power. Once maximum power was reached the rate was increased to 180 hertz. A total of 3000 shocks were given. Targetted imaging with ultrasound/fluoroscopy showed stone smudging suggestive of disintegration. The patient tolerated the procedure well and was transferred to the recovery area upon completion. Post procedure imaging will be organized. There was no evidence for flank discoloration.
[2021-07-12 11:04] VITALS: BP 176/104; PULSE 63; RESP 16; TEMP 36.6; O2SAT 95
[2021-07-12 11:09] VITALS: BP 150/96; PULSE 63; RESP 18; O2SAT 94
[2021-07-12 11:14] VITALS: BP 148/91; PULSE 63; RESP 18; O2SAT 95
[2021-07-12 11:18] VITALS: BP 148/86; PULSE 62; RESP 18; O2SAT 95
== END 2021-07-12 12:15 | disposition home or self-care (01) ==
PROVIDERS: Visit Provider Urology
PROC: (CPT 50590; principal; 2021-07-12 08:50)
DX: N20.1 Calculus of ureter (principal); I10 Essential (primary) hypertension; E78.5 Hyperlipidemia, unspecified; Z79.899 Other long term (current) drug therapy
CPT/HCPCS: 50590; 74018; J2250; J2405; J3010

== ENCOUNTER → 2021-07-21 14:49 | Outpatient (BNVA) | payer BC, SELFPAY | PROVIDERS: PCP Internal Medicine; Visit Provider Urology | DX: N20.0 Calculus of kidney (principal) | CPT/HCPCS: 52310 ==

== ENCOUNTER 2021-08-17 15:54 | Outpatient (REF) | payer BC, SELFPAY ==
--- NOTE | ~2021-08-17 | US_ITS ---
EXAMINATION: US RETROPERITONEAL LIMITED (RENAL ONLY) CLINICAL INFORMATION: Calculus of kidney. COMPARISON: X-ray KUB 07/12/2021. TECHNIQUE: Real-time imaging of the kidneys. FINDINGS: RIGHT KIDNEY: 12.0 x 5.9 x 6.9 cm (SAG x AP x TRV). The kidney is normal in size, contour, and echogenicity. Renal cortical thickness is normal. No calculi or focal parenchymal lesions. No hydronephrosis. LEFT KIDNEY: 11.4 x 5.7 x 5.1 cm (SAG x AP x TRV). The kidney is normal in size, contour, and echogenicity. Renal cortical thickness is normal. There is a 1 cm cyst in the medial upper pole. No renal calculi or hydronephrosis. US/US renal BI IMPRESSION: Small left renal cyst. No stone seen.
== END 2021-08-17 15:55 | disposition home or self-care (01) ==
LOC: HO.US 15:54
PROVIDERS: Visit Provider Urology
DX: N20.0 Calculus of kidney (principal)
CPT/HCPCS: 76775

== ENCOUNTER 2023-08-15 07:41 | Observation (INO) | payer BC, SELFPAY ==
[2023-08-15] VITALS (10 sets, daily range): BP systolic 116–152; BP diastolic 64–96; PULSE 62–76; RESP 13–116; TEMP 36.3–36.7; O2SAT 95–100; BMI 36.1
--- NOTE | ~2023-08-15 | CT_ITS ---
EXAMINATION: CT ANGIOGRAM OF THE HEAD CT ANGIOGRAM OF THE NECK CLINICAL INFORMATION: Left facial droop, difficulty speaking. COMPARISON: There are no prior studies available for comparison. TECHNIQUE: A noncontrast axial CT scan of the head was obtained. Test bolus series followed by intravenous administration 70 mL of Omnipaque 350. Helical imaging was performed in the axial plane from the mediastinum to the skull vertex. The degree of stenosis is based off NASCET criteria. The data was processed at the chief cardiopulmonary technologist workstation for generation of MIP images. Three-dimensional volume rendered reformatted images were also generated at an offline 3-D workstation. This CT examination was performed using dose optimization techniques as appropriate, variously including the following: *Automated exposure control *Adjustment of mA and/or kV according to patient size (this includes techniques or standardized protocols for targeted exams where dose is matched to indication/reason for exam; i.e. extremities or head) *Use of iterative reconstruction technique DLP: 2137 mGy-cm. FINDINGS: CT Head: There is no evidence of acute intracranial hemorrhage or territorial infarction. No abnormal mass-effect or midline shift is seen. Rouse to white matter differentiation is well preserved. No extra-axial fluid collections are identified. There is no abnormal enhancement. The ventricles and sulci are normal in size. Brain parenchymal attenuation is unremarkable. There are no acute osseous findings. There is mild soft tissue swelling in the left occipital region, which may be due to sequelae of trauma or inflammation/infection. The right frontal sinus is hypoplastic. There is a small retention cyst in the inferior right maxillary sinus. The mastoid air cells are well-aerated. CTA Neck: Imaging is slightly suboptimal due to patient motion artifact in the lower cervical region. There is a classic configuration of the arch of the aorta. The great vessels of the neck are widely patent. The subclavian arteries appear normal bilaterally. The common carotid arteries have normal caliber. There are mild atheromatous calcifications of the carotid bifurcations bilaterally, without flow-limiting stenosis. The internal carotid arteries in the neck bilaterally have uniform and normal caliber. The origins of both vertebral arteries are well seen and appear normal. Both vertebral arteries are widely patent and demonstrate good opacification throughout their cervical course. The left vertebral artery is slightly dominant. Nonvascular: There is a bullous in the left upper lobe. The thyroid gland is normal in size. There is no cervical lymphadenopathy. There are mild spondylitic changes at C5-C6. CTA Head: There are mild atheromatous calcifications of the cavernous internal carotid arteries, but the vessels are patent. The middle and anterior cerebral arteries bilaterally demonstrate normal caliber with no evidence of focal stenosis, aneurysm or vascular malformation. There is normal arborization of the middle cerebral artery branches. The anterior communicating artery is normal. In the posterior circulation, the left vertebral artery is dominant. Both intradural vertebral arteries have irregular caliber, most severe in the distal left vertebral artery and there are mild atheromatous calcifications of the intradural left vertebral artery at multiple levels. There is moderate irregular caliber of the proximal basilar artery, but the vessel is patent. More distally there is slight irregular caliber. There is a origin of the right posterior cerebral artery. Both posterior cerebral arteries are patent. The venous sinuses opacify normally. CT/CT angio head neck IMPRESSION: CT Head and Neck: 1. There are no acute bleeds or territorial infarcts. There are no masses or areas of abnormal enhancement. CTA Head and Neck: 1. There are mild atheromatous calcifications of the bilateral carotid bifurcations, without flow-limiting stenosis. 2. Intracranially, there is irregular caliber of the bilateral intradural vertebral arteries, more severe on the left and the proximal basilar artery. There are no focal stenoses, aneurysms or vascular malformations. This critical result was discussed with Sawyer Arizmendi by telephone on 08/15/2023 at 11:55 AM and it was ascertained that the content and urgency of the report was understood at the time of direct communication.
--- NOTE | ~2023-08-15 | MR_ITS ---
EXAMINATION: MR BRAIN WITHOUT CONTRAST CLINICAL INFORMATION: Possible TIA COMPARISON: Same-day CT angiogram of the head and neck TECHNIQUE: MRI of the brain was obtained using routine sequences without contrast. FINDINGS: There is no reduced diffusion to suggest acute infarct. Susceptibility weighted sequence is within normal limits. No mass effect, extra-axial collection, midline shift, or other herniation. The ventricles and sulci are normal in size and configuration for the patient's age. [place] T2/FLAIR hyperintense signal with additional scattered supratentorial T2/FLAIR hyperintense foci are nonspecific but likely represent chronic microvascular ischemia. Trace gliosis in the parasagittal left occipital lobe may be related to prior infarction. Intracranial flow voids are preserved. Trace scattered paranasal sinus mucosal thickening. Trace left mastoid fluid. No focal expansile/destructive osseous lesion. MR/MR head/brain wo con IMPRESSION: No restricted diffusion to indicate acute infarction. T2/FLAIR hyperintense signal in the central terrance is favored to represent sequela of chronic microvascular ischemia.
--- NOTE | 2023-08-15 07:54 | ECG_ITS ---
Test Reason : dizziness Blood Pressure : / mmHG Vent. Rate : 065 BPM Atrial Rate : 065 BPM P-R Int : 156 ms QRS Dur : 072 ms QT Int : 400 ms P-R-T Axes : 069 016 045 degrees QTc Int : 416 ms Normal sinus rhythm Normal ECG When compared with ECG of 06-JUL-2021 22:22, No significant change was found Referred By: Generic ED Physician Electronically Signed By:Hugo Aleman
[2023-08-15 07:59] LABS: Glucose, Whole Blood 102 mg/dL (60-115)
--- NOTE | 2023-08-15 08:03 | ED_ITS ---
HPI - General Adult General Chief complaint: General Medical Stated complaint: WEAK,DIZZY,GABLED/NUMB MOUTH, RESOLVED PER EMS Time Seen by Provider: 08/15/23 08:03 History of Present Illness HPI narrative: The patient is a 58-year-old male with a history of hypertension and hyperlipidemia who says that he was feeling fine when he woke up this morning. However while getting ready for the day 1 point he got up to go to the bathroom. He says that when he stood up of very lightheaded. He then felt that his left lips were numb. He became very concerned. He tried to speak to his but apparently his speech was abnormal. His thought that he had a left facial 911. The patient's says that he spoke ?as if he had marbles in his mouth. ? By the time paramedics arrived the symptoms had resolved. The patient estimates that his symptoms lasted about 7 minutes in duration. There was no associated headache, chest pain, shortness of breath, nausea, vomiting. The patient has never had an episode like this before. He was feeling fine yesterday. Related Data Home Medications Medication Instructions Recorded Confirmed amlodipine 10 mg-benazepril 20 mg 1 cap PO BEDTIME 04/19/20 08/15/23 capsule pravastatin 40 mg tablet 40 mg PO BEDTIME 04/19/20 08/15/23 acetaminophen 325 mg tablet 650 mg PO BID PRN Pain 07/07/21 08/15/23 Allergies Allergy/AdvReac Type Severity Reaction Status Date / Time No Known Allergies Allergy Verified 07/21/21 15:04 Review of Systems 2 Review of Systems: Yes all other systems are reviewed and are negative [facility] Past Medical History Medical History HTN (hypertension) Hyperlipidemia Social History Social History Alcohol intake: former Patient Tobacco Use Status: Former Tobacco user Tobacco use type: Cigarette Smoked in Last 30 Days: No Use of substances other than those prescribed or required for medical reasons: No Advance Directives: No Advance Directives Information Provided: Yes service: No Current occupational status: employed Physical Exam ED Vital Signs: Vital Signs - 24 hr 08/15/23 07:55 08/15/23 10:00 08/15/23 11:00 Temperature 98.0 F Pulse Rate 65 62 64 Respiratory Rate 116 H 16 14 Blood Pressure 116/66 142/80 H 136/84 Pulse Oximetry 95 97 97 Oxygen Delivery Method Room Air Room Air Room Air 08/15/23 12:00 08/15/23 14:09 08/15/23 14:10 Temperature 97.8 F 98 F Pulse Rate 69 76 Respiratory Rate 13 16 Blood Pressure 129/64 152/96 H Pulse Oximetry 98 98 Oxygen Delivery Method Room Air Room Air BMI result Body Mass Index 36.1 Const Other: The patient is awake and alert. He does not appear in obvious distress. No obvious neurological deficit. He has not appear obviously ill. HENMT Other: Face is symmetrical. Tongue is midline. Mucous membranes moist. Eyes Other: Pupils are round equal, conjunctivae are clear, extraocular movements intact, lateral gaze is intact bilaterally. Visual giang are intact to confrontation. Neck Other: No JVD Resp Effort & Inspection: normal respiratory effort Auscultation: clear to auscultation bilaterally Cardio Rate: regular rate Rhythm: regular rhythm Heart sounds: S1 normal heart sound present and S2 normal heart sound present GI Other: Abdomen is soft and nontender Skin Other: Skin is dry and unremarkable Neuro Other: The patient is awake, alert, oriented, and appropriate. He has no facial asymmetry. Lateral gaze is intact. Visual giang are intact. Speech is clear and normal without dysarthria or aphasia. Strength is intact in all 4 extremities. No pronator drift. Finger-nose is normal. Heel-sanchez is normal bilaterally although his left leg exam is difficult because of prior hip surgery. Sensation is intact throughout. NIH stroke scale is 0 Medications Administered Discontinued Medications Generic Name Dose Route Start Last Admin Trade Name Paramjit PRN Reason Stop Dose Admin Aspirin 325 mg 08/15/23 12:11 08/15/23 12:46 Aspirin 325 Mg Tablet PO 08/15/23 12:12 325 mg ONCE ONE Administration Iohexol 100 ml 08/15/23 10:27 08/15/23 10:27 Iohexol 350 Mg/Ml 100 Ml Infus..Btl IV 08/15/23 10:28 70 ml ONCE ONE Administration Medical Decision Making Medical Decision Making MDM Narrative: The patient is a 58-year-old male with a history of hypertension and hyperlipidemia who apparently had an episode of left facial droop and numbness and difficulty speaking while at home this morning. The episode lasted less than 10 minutes. He has never had an episode like this before. The description of the episode is suggestive of a possible TIA. On presentation to the emergency room the patient was not having any ongoing symptoms and his NIH stroke scale was 0. He was therefore not a candidate for thrombolytic therapy. A noncontrast head CT was done that shows no acute bleeding or obvious infarction. A CT angiogram of the head and neck shows mild atheromatous calcifications of the bilateral carotid bifurcations. No large vessel occlusion. The patient was stable in the emergency room although he was very frustrated at a lack of specific diagnosis and he was also very frustrated at the recommendation for hospitalization for further evaluation. Overall I felt the patient's and the 's description of the episode was sufficiently concerning for a possible TIA to hospitalize the patient for additional workup. The patient passed a swallow evaluation and was given a dose of aspirin. He will be hospitalized under hospitalist service Lab Data 08/15/23 08:38 08/15/23 08:38 Labs: Lab Results 08/15/23 08/15/23 Range/Units 07:54 08:38 WBC 10.3 (4.8-10.8) X10*3/uL RBC 4.97 (4.60-5.80) X10*6/uL Hgb 15.4 (14.0-18.0) g/dl Hct 45.0 (42.0-52.0) % MCV 90.5 (80.0-98.0) fL MCH 31.0 (27.0-33.0) pg MCHC 34.2 (31.0-36.0) g/dl RDW 14.1 (11.0-16.0) % Plt Count 246 (160-400) X10*3/uL MPV 9.5 (9.4-12.4) fL Immature Gran % (Auto) 0.3 (0.0-0.4) % Neut % (Auto) 71.8 (45-73) % Lymph % (Auto) 17.7 L (20-40) % [place] % (Auto) 8.2 (2-11) % Eos % (Auto) 1.5 (0-4) % Baso % (Auto) 0.5 (0-2) % Lymph # (Auto) 1.8 (1.2-4.9) X10*3/uL [place] # (Auto) 0.9 (0.1-1.2) X10*3/uL Eos # (Auto) 0.2 (0.0-0.4) X10*3/uL Baso # (Auto) 0.1 (0.0-0.2) X10*3/uL Abs Immat Gran (auto) 0.03 (0.00-0.03) X10*3/uL Absolute Neuts (auto) 7.4 (2.0-8.3) x10*3/uL Absolute Nucleated RBC 0.000 (0.0-0.012) X10*3/uL Nucleated RBC % (auto) 0.0 (0.0-0.2) /100WBC PT 11.6 (11.1-13.3) SEC INR 1.0 (0.9-1.1) Sodium 136 (135-145) mmol/L Potassium 4.2 (3.3-5.1) mmol/L Chloride 110 H (96-108) mmol/L Carbon Dioxide 20 L (22-29) mmol/L Anion Gap 10 L (12-20) BUN 14 (9-16) mg/dL Creatinine 0.72 (0.5-1.4) mg/dL Estim Creat Clear Calc 107.1 Estimated GFR > 60 POC Glucose 102 (60-115) mg/dL Random Glucose 95 (60-115) mg/dL Calcium 8.9 (8.4-10.2) mg/dL Magnesium 1.9 (1.6-2.6) mg/dL Total Bilirubin 0.2 (0.0-1.0) mg/dL Direct Bilirubin < 0.2 (0.0-0.5) mg/dL AST 13 (5-37) U/L ALT 17 (0-40) U/L Alkaline Phosphatase 47 (39-117) U/L Troponin I High Sens < 2.7 (<3.5-35.0) ng/L C-Reactive Protein 0.31 (< or = 0.50) mg/dL B-Natriuretic Peptide 13 (<100) pg/mL Total Protein 6.6 (6.5-8.0) g/dL Albumin 3.8 (3.5-5.0) g/dL Ethyl Alcohol < 10 mg/dL Critical Care Time Critical Care Time Critical Care Time: Yes Total Critical Care Time: 45 Attestation: The patient was critically ill with a high probability of imminent or life- threatening deterioration. ?I spent greater than 30 minutes of discontinuous time evaluating the patient, delivering critical care at the bedside, discussing evaluating data with consultants. ?Critical care time does not include time spent performing separately billable procedures or teaching. ?Time spent performing critical care with 45 minutes. Discharge Plan Discharge Clinical Impression: Transient ischemic attack Patient Disposition: Admitted As Inpatient
--- NOTE | 2023-08-15 08:40 | MHC.EDTECH ---
This pct went in to pts room to draw lab work. Upon arrival of pts the pt became agitated stating he wants leave and isnt sitting around to wait for blood work all day long. Agreed to have labs drawn but still agitated asking if this is going to take all day. JET Bennett made aware.
[2023-08-15 08:43] LABS: MANUAL DIFF FLAG NO
[2023-08-15 08:44] LABS: Basophils Absolute Auto 0.1 X10*3/uL (0.0-0.2); Basophils Percent Auto 0.5 % (0-2); Eosinophils Absolute Auto 0.2 X10*3/uL (0.0-0.4); Eosinophils Percent Auto 1.5 % (0-4); Hemoglobin 15.4 g/dl (14.0-18.0); Imm Gran Abs Auto 0.03 X10*3/uL (0.00-0.03); Imm Gran Pct Auto 0.3 % (0.0-0.4); Lymphocytes Absolute Auto 1.8 X10*3/uL (1.2-4.9); Lymphocytes Percent Auto 17.7 % (20-40); Mean Corpuscular HGB Conc 34.2 g/dl (31.0-36.0); Mean Corpuscular Volume 90.5 fL (80.0-98.0); Mean Platelet Volume 9.5 fL (9.4-12.4); Monocytes Absolute Auto 0.9 X10*3/uL (0.1-1.2); Monocytes Percent Auto 8.2 % (2-11); Neutrophils Absolute Auto 7.4 x10*3/uL (2.0-8.3); Neutrophils Percent Auto 71.8 % (45-73); Platelet Count 246 X10*3/uL (160-400); Red Blood Count 4.97 X10*6/uL (4.60-5.80); Red Cell Distribution Width 14.1 % (11.0-16.0); White Blood Count 10.3 X10*3/uL (4.8-10.8)
[2023-08-15 08:50] LABS: Prothrombin Time 11.6 SEC (11.1-13.3)
[2023-08-15 09:01] LABS: Alanine Aminotransferase 17 U/L (0-40); Albumin Level 3.8 g/dL (3.5-5.0); Alkaline Phosphatase 47 U/L (39-117); Anion Gap 10 (12-20); Aspartate Amino Transferase 13 U/L (5-37); Bilirubin Direct < 0.2 mg/dL (0.0-0.5); Bilirubin Total 0.2 mg/dL (0.0-1.0); Blood Urea Nitrogen 14 mg/dL (9-16); C Reactive Protein 0.31 mg/dL (< or = 0.50); Calcium 8.9 mg/dL (8.4-10.2); Carbon Dioxide 20 mmol/L (22-29); Chloride 110 mmol/L (96-108); Creatinine Clr Calc Pharmacy 107.1; Estimated Glomerular Filt Rate > 60; Ethanol < 10 mg/dL; Glucose Random 95 mg/dL (60-115); Magnesium 1.9 mg/dL (1.6-2.6); Potassium 4.2 mmol/L (3.3-5.1); Sodium 136 mmol/L (135-145); Total Protein 6.6 g/dL (6.5-8.0)
[2023-08-15 09:04] LABS: B Type Natriuretic Peptide 13 pg/mL (<100)
[2023-08-15 09:12] LABS: Troponin-I High Sensitivity < 2.7 ng/L (<3.5-35.0)
[2023-08-15] MEDS: iohexoL 350 MG/ML 100 ML INFUS..BTL IV (10:27)
--- NOTE | 2023-08-15 11:35 | PC.NURSE ---
per at bedside pt seems agitated. pt does present as irritable and mildy agitated calling the staff stupid. neuros appear intact on assessment w/no focal deficits. denies si/hi. aox4. no resp distress. vss. piv c/d/i.
--- NOTE | 2023-08-15 12:44 | PHA.MEDREC ---
Pharmacy Consult ? Medication Reconciliation Pharmacy has completed the medication reconciliation. Spoke to patient and confirmed medication list.
[2023-08-15] MEDS: Aspirin 325 MG TABLET PO (12:46)
--- NOTE | 2023-08-15 13:28 | P.HPHOSP_ITS ---
History of Present Illness Date of Service: 08/15/23 Attending physician on admission: Darren Mao Chief Complaint: Left-sided deficits Pt is a 58-year-old male with a PMH significant for?HTN and HLD who presents to the ED for evaluation left-sided facial deficits. Patient states he awoke this morning in his normal state of health and went out to the kitchen to get breakfast. Patient's suddenly felt lightheaded, had left-side facial numbness, and difficulty speaking. Reports his noted left-sided facial droop and that difficulty understanding him. States symptoms lasted only a few seconds but called EMS. Denies any numbness/tingling or weakness of upper or lower extremities. No headache or acute vision changes. Denies chest pain/pressure, palpitations. No shortness of breath. In the ED pt's vital signs WNL. Labs were grossly unremarkable. No leukocytosis. Stable H&H. No electrolyte abnormalities. Renal function baseline. Hepatic function baseline. Troponin negative. Inflammatory markers negative. BNP negative. CTA of head and neck found no acute intracranial infarcts or hemorrhages, no masses or abnormal enhancement. Found mild atheromatous calcifications of bilateral carotids without flow-limiting stenosis, and irregularities in vertebral and basilar arteries, but no focal stenosis, aneurysm, or vascular malformations. ?EKG demonstrated normal sinus rhythm without any significant ST elevations or depressions. Pt was treated with aspirin. Pt will be admitted to the hospital under observation for further workup for possible TIA. Review of Systems 2 Review of Systems: Left-sided facial numbness and drooping Dysarthria Lightheadedness Denies upper or extremity weakness or numbness/tingling No ataxia Denies headache or acute vision changes No fever, chills, nausea, vomiting, abdominal pain Denies chest pain/pressure, palpitations No shortness of [facility] Medical History Hyperlipidemia HTN (hypertension) Social History Alcohol intake: former Patient Tobacco Use Status: Former Tobacco user Tobacco use type: Cigarette service: No Current occupational status: employed Meds Allergies Allergy/AdvReac Type Severity Reaction Status Date / Time No Known Allergies Allergy Verified 07/21/21 15:04 Home Medications Medication Instructions Recorded Confirmed Last Taken Type amlodipine 10 mg-benazepril 20 mg 1 cap PO BEDTIME 04/19/20 08/15/23 08/14/23 History capsule acetaminophen 325 mg tablet 650 mg PO BID PRN Pain 07/07/21 08/15/23 08/14/23 History Physical Exam 2 Vital Signs and Narrative: Vital Signs: Last Vital Signs Temp 97.8 F 08/15/23 12:00 Pulse 69 08/15/23 12:00 Resp 13 08/15/23 12:00 BP 129/64 08/15/23 12:00 Pulse Ox 98 08/15/23 12:00 O2 Del Method Room Air 08/15/23 12:00 BMI result Body Mass Index 36.1 Constitutional: Alert, upset, occasionally belligerent, in no acute distress. Mental Status: Oriented to person, place and time. Eyes: Pupils are equal, round, and reactive to light. Ear, Nose, and Throat: Oropharynx clear, mucous membranes moist. Ears and nose without deformities. Trachea midline. Respiratory: Clear to auscultation bilaterally. No wheezing, rales, or rhonchi. Cardiovascular: S1, S2 regular. No murmurs, rubs, or gallops. Gastrointestinal: Abdomen soft, non-tender, non-distended. Normal bowel sounds. Neurologic: Cranial nerves II-XII are grossly intact bilaterally. No focal neurological deficits. Moves all extremities spontaneously. Skin: Warm, dry. Musculoskeletal: No cyanosis or clubbing. Extremities: No edema. Psychiatric: Normal mood and affect. Results Labs 08/15/23 08:38 08/15/23 08:38 Labs: Laboratory Results - last 24 hr 08/15/23 08/15/23 07:54 08:38 MCV 90.5 MCH 31.0 MCHC 34.2 RDW 14.1 Plt Count 246 MPV 9.5 Immature Gran % (Auto) 0.3 Neut % (Auto) 71.8 Lymph % (Auto) 17.7 L [place] % (Auto) 8.2 Eos % (Auto) 1.5 Baso % (Auto) 0.5 Lymph # (Auto) 1.8 [place] # (Auto) 0.9 Eos # (Auto) 0.2 Baso # (Auto) 0.1 Abs Immat Gran (auto) 0.03 Absolute Neuts (auto) 7.4 Absolute Nucleated RBC 0.000 Nucleated RBC % (auto) 0.0 PT 11.6 INR 1.0 Anion Gap 10 L Estim Creat Clear Calc 107.1 Estimated GFR > 60 POC Glucose 102 Random Glucose 95 Calcium 8.9 Magnesium 1.9 Total Bilirubin 0.2 Direct Bilirubin < 0.2 AST 13 ALT 17 Alkaline Phosphatase 47 Troponin I High Sens < 2.7 C-Reactive Protein 0.31 B-Natriuretic Peptide 13 Total Protein 6.6 Albumin 3.8 Ethyl Alcohol < 10 Imaging Radiologist's Impressions: Impressions Head/Neck CTA 08/15/23 10:31 IMPRESSION: CT Head and Neck: 1. There are no acute bleeds or territorial infarcts. There are no masses or areas of abnormal enhancement. CTA Head and Neck: 1. There are mild atheromatous calcifications of the bilateral carotid bifurcations, without flow-limiting stenosis. 2. Intracranially, there is irregular caliber of the bilateral intradural vertebral arteries, more severe on the left and the proximal basilar artery. There are no focal stenoses, aneurysms or vascular malformations. This critical result was discussed with Sawyer Arizmendi by telephone on 08/15/2023 at 11:55 AM and it was ascertained that the content and urgency of the report was understood at the time of direct communication. Assessment and Plan (1) Numbness and tingling of left side of face: Status: Acute Plan Pt is a 58-year-old male with a PMH significant for?HTN and HLD who presents to the ED for evaluation left-sided facial deficits. Pt will be admitted to the hospital under observation for further workup for possible TIA. Left-sided facial deficits Patient complains of brief episode of lightheadedness and left-sided facial numbness and drooping with dysarthria Patient notes seemingly back to baseline with no focal deficits noted CTA of head and neck negative for acute intracranial hemorrhage or edematous territorial infarction; notes some irregularities of vertebral artery and basilar artery, but no acute findings Concerning for possible TIA Aspirin 81 mg daily Continue statin 40 mg p.o. MRI of head/brain Echocardiogram Lipid profile PT/OT evaluation Neurology consult Monitor on telemetry HTN Continue home antihypertensives HLD Continue statin Full Code Attending:? DVT Prophylaxis: Lovenox Patient be admitted to the hospital under observation for workup for possible TIA. Patient require additional imaging of heart and brain, specialist consultation, and close cardiac monitoring. Quality Stroke Does the patient have a stroke diagnosis?: No VTE Prior VTE?: No VTE Risk Level:: Medical - moderate - high VTE Device Contraindication: Treatment Not Indicated VTE Drug Contraindication: N/A - Med Ordered
--- NOTE | 2023-08-15 16:11 | PM.NEUROCN ---
History of Present Illness Data of Consult Service Date: 08/15/23 Primary Care Provider: Kathi Garduno NP [facility] Reason for consult: Sudden onset of dizziness and slurred speech with left facial droop This is a 58-year-old man with a history of hypertension and hypeerlipidemia controlled with medications who got up this morning and suddenly felt lightheaded, dizzy and had to hold on. When he spoke to his . She noted that the left side of his mouth drooped and his speech was garbled as if he had marbles in his mouth. This lasted for about 2-3 min. and then resolved and he was back to normal. There was no headache. There was no vertigo, double vision, loss of vision lateralized weakness or numbness. His never had a stroke with TIA in the past. His stroke risk factors include hypertension, hyperlipidemia, and history of smoking. Review of Systems Review of Systems: Yes all other systems are reviewed and are negative PMFSH Past Medical History Medical History HTN (hypertension) Hyperlipidemia Social History Social History Alcohol intake: former Patient Tobacco Use Status: Former Tobacco user Tobacco use type: Cigarette Smoked in Last 30 Days: No Use of substances other than those prescribed or required for medical reasons: No Advance Directives: No Advance Directives Information Provided: Yes service: No Current occupational status: employed Meds Allergies Allergy/AdvReac Type Severity Reaction Status Date / Time No Known Allergies Allergy Verified 07/21/21 15:04 Active Medications: Current Medications Acetaminophen (Acetaminophen 325 Mg Tablet) 650 mg PO Q6H PRN PRN Reason: Pain, Mild (Pain Scale 1-3) Amlodipine Besylate (Amlodipine Besylate 10 Mg Tablet) 10 mg PO BEDTIME ALYCIA Aspirin (Aspirin Enteric Coated 81 Mg Tablet.Dr) 81 mg PO DAILY ALYCIA Benzonatate (Benzonatate 100 Mg Capsule) 100 mg PO TID PRN PRN Reason: Cough Docusate Sodium (Docusate Sodium 100 Mg Capsule) 100 mg PO DAILY PRN PRN Reason: Constipation Enoxaparin Sodium (Enoxaparin Sodium 40 Mg/0.4 Ml Syringe) 40 mg SUBCUT Q24H ALYCIA Lisinopril (Lisinopril 20 Mg Tablet) 20 mg PO BEDTIME ALYCIA Melatonin (Melatonin 3 Mg Tablet) 6 mg PO BEDTIME PRN PRN Reason: Insomnia Ondansetron HCl (Ondansetron Hcl 4 Mg/2 Ml Vial) 4 mg IVPUSH Q8H PRN PRN Reason: Nausea and Vomiting Pravastatin Sodium (Pravastatin Sodium 40 Mg Tablet) 40 mg PO BEDTIME ALYCIA Sodium Chloride (0.9 % Sodium Chloride Flush 3 Ml Syringe) 3 ml IVFLUSH QSHIFT ALYCIA Last Admin: 08/15/23 16:07 Dose: Not Given Home Medications Medication Instructions Recorded Confirmed Last Taken Type amlodipine 10 mg-benazepril 20 mg 1 cap PO BEDTIME 04/19/20 08/15/23 08/14/23 History capsule pravastatin 40 mg tablet 40 mg PO BEDTIME 04/19/20 08/15/23 08/14/23 History acetaminophen 325 mg tablet 650 mg PO BID PRN Pain 07/07/21 08/15/23 08/14/23 History Physical Exam Vital Signs: Vital Signs: Last Vital Signs Temp 98 F 08/15/23 14:09 Pulse 76 08/15/23 14:09 Resp 16 08/15/23 14:09 BP 152/96 H 08/15/23 14:10 Pulse Ox 98 08/15/23 14:09 O2 Del Method Room Air 08/15/23 14:09 BMI result Body Mass Index 36.1 Const: Other: The patient is awake and alert. He does not appear in obvious distress. No obvious neurological deficit. He has not appear obviously ill. HEENT: Other: Face is symmetrical. Tongue is midline. Mucous membranes moist. Eyes: Other: Pupils are round equal, conjunctivae are clear, extraocular movements intact, lateral gaze is intact bilaterally. Visual giang are intact to confrontation. Neck: Other: No JVD Resp: Effort & Inspection: normal respiratory effort Auscultation: clear to auscultation bilaterally Cardio: Rate: regular rate Rhythm: regular rhythm Heart sounds: S1 normal heart sound present and S2 normal heart sound present GI: Other: Abdomen is soft and nontender Skin: Other: Skin is dry and unremarkable Neuro: Other: The patient is awake, alert, oriented, and appropriate. He has no facial asymmetry. Lateral gaze is intact. Visual giang are intact. Speech is clear and normal without dysarthria or aphasia. Strength is intact in all 4 extremities. No pronator drift. Finger-nose is normal. Heel-sanchez is normal bilaterally although his left leg exam is difficult because of prior hip surgery. Sensation is intact throughout. NIH stroke scale is 0 Results Labs 08/15/23 08:38 08/15/23 08:38 Labs: Short CBC 08/15/23 Range/Units 08:38 WBC 10.3 (4.8-10.8) X10*3/uL Hgb 15.4 (14.0-18.0) g/dl Hct 45.0 (42.0-52.0) % Plt Count 246 (160-400) X10*3/uL BMP 08/15/23 08:38 Sodium 136 Potassium 4.2 Chloride 110 H Carbon Dioxide 20 L BUN 14 Creatinine 0.72 Calcium 8.9 Liver Function 08/15/23 Range/Units 08:38 Total Bilirubin 0.2 (0.0-1.0) mg/dL Direct Bilirubin < 0.2 (0.0-0.5) mg/dL AST 13 (5-37) U/L ALT 17 (0-40) U/L Alkaline Phosphatase 47 (39-117) U/L Albumin 3.8 (3.5-5.0) g/dL Assessment and Plan (1) Transient ischemic attack: Status: Acute His history is fairly typical for a right hemispheric TIA. Symptoms have resolved completely. His CT brain is negative and CTA shows some at throat scar carotic plaque in the carotids and intracranial vertebral without hemodynamically significant stenosis. Recommendations start aspirin 81 mg a day and increases in atorvastatin to 80 mg a day. He can have an outpatient echocardiogram with bubble study. Procedures Date of Service Date of Service: 08/15/23
--- NOTE | 2023-08-15 17:00 | PC.NURSE ---
pt brought to [facility]- mri form complete.
[2023-08-15] MEDS: Enoxaparin Sodium 40 MG/0.4 ML SYRINGE SUBCUT (18:39)
[2023-08-15 18:59] LABS: Appearance Urine Clear; Color Urine Yellow; Glucose Urine UA Negative (Negative); Leukocyte Esterase Urine Negative (Negative); Nitrite Urine Negative (Negative); PH >= 9.0 (5.0-9.0); Specific Gravity - Urine >= 1.030 (1.005-1.025); UMIC TRIGGER UACC YES; Urine Blood Trace (Negative); Urine Ketones Negative (Negative); Urine Protein Negative (Neg-Trace)
[2023-08-15 19:02] LABS: Bacteria Urine None Seen (None Seen); Hyaline Casts Urine 0-2 /LPF (0-2); Squamous Epithelial Cell Urine 0-2 /HPF (0-2); WBC Urine 0-5 /HPF (0-5)
[2023-08-15] MEDS: Pravastatin Sodium 40 MG TABLET PO (21:41)
[2023-08-15] MEDS: lisinopriL 20 MG TABLET PO (21:41)
[2023-08-15] MEDS: amLODIPine Besylate 10 MG TABLET PO (21:42)
--- NOTE | 2023-08-15 21:43 | PC.NURSE ---
pt placed in hospital bed. axox4 ambulatory with steady gait. neuros intact. vss. pt medicated per mar tolerated well with water. call paul within reach.
[2023-08-16 06:07] VITALS: BP 118/53; PULSE 73; RESP 12; TEMP 36.3; O2SAT 98
[2023-08-16 06:25] LABS: Cholesterol 168 mg/dL (<200); HDL Cholesterol 40 mg/dL (>40); LDL Cholesterol Calculated 82 mg/dL (<100); Triglycerides 233 mg/dL (<150)
--- NOTE | 2023-08-16 08:00 | PC.NURSE ---
admission worksheet complete. transport notified at this time.
--- NOTE | 2023-08-16 08:58 | PC.NURSE ---
pt being transported upstairs by admission RN at this time.
[2023-08-16] MEDS: Aspirin Enteric Coated 81 MG TABLET.DR PO (09:17)
--- NOTE | 2023-08-16 09:18 | PC.NURSE ---
medication administered per provider order. pt/family member spoke w/ admitting provider in regards to being discharged and getting an echo completed outpatient. pt waiting for admitting provider to be d/c order in at this time. plan of care ongoing.
[2023-08-16 09:20] VITALS: BP 133/81; PULSE 70; RESP 16; TEMP 36.4; O2SAT 98
--- NOTE | 2023-08-16 09:22 | MHC.CM.PN ---
cm attempted to meet w/pt however pt has not arrived to unit, cm to revisit.
--- NOTE | 2023-08-16 09:47 | P.DS_ITS ---
DS: Providers Provider Date of Service: 08/16/23 Date of admission: 08/15/23 14:53 Primary care physician: Kathi Garduno NP Consults: 08/15/23 15:03 Consult to Neurology Routine Consulting Provider: [facility] Reason for consultation: Left-sided facial deficits, ?TIA DS: Diagnosis Discharge Diagnosis (1) Numbness and tingling of left side of face: Status: Acute (2) Transient ischemic attack: Status: Acute DS: Summary Hospital Course Hospital Course: Admission note HPI Pt is a 58-year-old male with a PMH significant for?HTN and HLD who presents to the ED for evaluation left-sided facial deficits. Patient states he awoke this morning in his normal state of health and went out to the kitchen to get breakfast. Patient's suddenly felt lightheaded, had left-side facial numbness, and difficulty speaking. Reports his noted left-sided facial droop and that difficulty understanding him. States symptoms lasted only a few seconds but called EMS. Denies any numbness/tingling or weakness of upper or lower extremities. No headache or acute vision changes. Denies chest pain/pressure, palpitations. No shortness of breath. In the ED pt's vital signs WNL. Labs were grossly unremarkable. No leukocytosis. Stable H&H. No electrolyte abnormalities. Renal function baseline. Hepatic function baseline. Troponin negative. Inflammatory markers negative. BNP negative. CTA of head and neck found no acute intracranial infarcts or hemorrhages, no masses or abnormal enhancement. Found mild atheromatous calcifications of bilateral carotids without flow-limiting stenosis, and irregularities in vertebral and basilar arteries, but no focal stenosis, aneurysm, or vascular malformations. ?EKG demonstrated normal sinus rhythm without any significant ST elevations or depressions. Pt was treated with aspirin. Pt will be admitted to the hospital under observation for further workup for possible TIA. Hospital course The jasontnet was admitted for evaluation of Left-sided facial droop and numbness. He is back to baseline with no focal deficits noted. CTA of head and neck negative for acute intracranial hemorrhage or edematous territorial infarction; notes some irregularities of vertebral artery and basilar artery, but no acute findings or significant stenosis. An MRI was done with no signs to suggest acute stroke. Evaluated by neurologist who recommended Aspirin 81 mg daily and Atorvastatin 80 mg daily. Echo to be done as outpatient and he will be followed by PCP. He was able to ambulate in harris freely with no gait problems. We advise you to lose weight Start Baby aspirin Start Atorvastatin 80 mg daily To do an Echo as outpatient To follow with PCP Time Attestation Discharge Coordination Time (in mins): 26 Quality: Safe Use of Opioids Does Pt have an Active Cancer Diagnosis on the Problem List?: No Quality: Stroke Does the patient have a stroke diagnosis?: No Physical Exam Vital Signs: Vital Signs: Last Vital Signs Temp 97.5 F 08/16/23 09:20 Pulse 70 08/16/23 09:20 Resp 16 08/16/23 09:20 BP 133/81 08/16/23 09:20 Pulse Ox 98 08/16/23 09:20 O2 Del Method Room Air 08/16/23 09:20 BMI result Body Mass Index 36.1 Const: Other: Constitutional : Awake, interactive, not in distress Neck : Normal inspection, Supple Cardiovascular : RRR, no JVP, no lower extremity edema Respiratory : good bilateral air entry, no crackles, wheezes or rhonchi Gastrointestinal: soft, lax, Normal bowel sounds, Non tender Skin : Warm, Dry Neurological : Alert & oriented x3, No focal deficit , CN 2-12 within normal DS: Data Data Completed and Pending Labs on day of discharge: Laboratory Results - last 24 hr 08/15/23 08/16/23 18:48 05:12 Triglycerides 233 H Cholesterol 168 LDL Cholesterol, Calc 82 HDL Cholesterol 40 L Urine Color Yellow Urine Appearance Clear Urine pH >= 9.0 Ur Specific [place] >= 1.030 H Urine Protein Negative Urine Glucose (UA) Negative Urine Ketones Negative Urine Blood Trace H Urine Nitrite Negative Ur Leukocyte Esterase Negative Urine RBC 6-10 H Urine WBC 0-5 Ur Squamous Epith Cells 0-2 Urine Bacteria None Seen Hyaline Casts 0-2 Imaging MRI - head: Radiologist's impression: ITS Impressions Head/Neck CTA 08/15/23 10:31 IMPRESSION: CT Head and Neck: 1. There are no acute bleeds or territorial infarcts. There are no masses or areas of abnormal enhancement. CTA Head and Neck: 1. There are mild atheromatous calcifications of the bilateral carotid bifurcations, without flow-limiting stenosis. 2. Intracranially, there is irregular caliber of the bilateral intradural vertebral arteries, more severe on the left and the proximal basilar artery. There are no focal stenoses, aneurysms or vascular malformations. This critical result was discussed with Sawyer Arizmendi by telephone on 08/15/2023 at 11:55 AM and it was ascertained that the content and urgency of the report was understood at the time of direct communication. Brain MRI 08/15/23 17:59 IMPRESSION: No restricted diffusion to indicate acute infarction. T2/FLAIR hyperintense signal in the central terrance is favored to represent sequela of chronic microvascular ischemia. Discharge Plan Discharge Anticipated Discharge Date/Time: 08/16/23 09:41 Patient Disposition: Home, Self-Care Discharge Diagnosis: Transient ischemic attack Referrals: Kathi Garduno, INHALATION THERAPY AIDES TEACHER [Primary Care Provider] - 1 Week Discharge Medications: New atorvastatin 80 mg Tablet 80 mg PO BEDTIME Qty: 90 0RF aspirin 81 mg Tablet,Delayed Release (Dr/Ec) 81 mg PO DAILY Qty: 90 0RF Continued amlodipine-benazepril 10-20 mg capsule 1 cap PO BEDTIME acetaminophen 325 mg Tablet 650 mg PO BID PRN (Reason: Pain) Discontinued pravastatin 40 mg tablet 40 mg PO BEDTIME Discharge Orders: Discharge Order (Routine); Ordered 08/16/23 Ordered By: Briseyda Torres Diet: Advance to usual diet Activity on Discharge: As tolerated Stand Alone Forms: Patient Portal Discharge page Other Ambulatory Orders: CA echo transthorac w con (Routine) Timeframe: 2 Weeks Facility: [facility] - Location: Cardiology Ordered By: Briseyda Torres Care Plan Goals: Read below Health Concerns: Read below Plan of Treatment: Read below Assessment: You were admitted for evaluation of transient episode of numbness and facial drop. brain images did not show any acute stroke or bleeding. We advise you to lose weight Start Baby aspirin Start Atorvastatin 80 mg daily To do an Echo as outpatient To follow with PCP
--- NOTE | 2023-08-16 10:46 | MHC.CM.PN ---
PT DISCHARGED HOME PRIOR TO CM ASSESSMENT AND DELIVERY OF KNOWLES.
== END 2023-08-16 10:17 | disposition home or self-care (01) ==
LOC: HO.ED 12:23 → HO.EDOVER 15:12 → HO.IMC 08-16 07:50
PROVIDERS: Admitting Provider Student in an Organized Health Care Education/Training Program; Emergency Provider Emergency Medicine; PCP Nurse Practitioner Family; Visit Provider Student in an Organized Health Care Education/Training Program
DX: G45.9 Transient cerebral ischemic attack, unspecified (principal); R20.2 Paresthesia of skin; R29.810 Facial weakness; R47.1 Dysarthria and anarthria; R42 Dizziness and giddiness; I10 Essential (primary) hypertension; E78.5 Hyperlipidemia, unspecified; Z79.899 Other long term (current) drug therapy
CPT/HCPCS: 36415; 70496; 70498; 70551; 80048; 80061; 80076; 80307; 81001; 82947; 83735; 83880; 84484; 85025; 85610; 86140; 93005; 96372; 99222; 99285; J1650; Q9967

== ENCOUNTER → 2023-08-15 07:54 | Outpatient (BNV) | payer BC, SELFPAY | PROVIDERS: Admitting Provider Student in an Organized Health Care Education/Training Program; Emergency Provider Emergency Medicine; PCP Nurse Practitioner Family; Visit Provider Internal Medicine Cardiovascular Disease | DX: R42 Dizziness and giddiness (principal) | CPT/HCPCS: 93010 ==

== ENCOUNTER → 2023-08-15 14:53 | Outpatient (BNV) | payer BC, SELFPAY | PROVIDERS: Admitting Provider Student in an Organized Health Care Education/Training Program; Emergency Provider Emergency Medicine; PCP Nurse Practitioner Family; Visit Provider Student in an Organized Health Care Education/Training Program | DX: R20.0 Anesthesia of skin (principal); R20.2 Paresthesia of skin; G45.9 Transient cerebral ischemic attack, unspecified | CPT/HCPCS: 99222; 99238 ==

== ENCOUNTER → 2023-08-15 14:53 | Outpatient (BNV) | payer BC, SELFPAY | PROVIDERS: Admitting Provider Student in an Organized Health Care Education/Training Program; Emergency Provider Emergency Medicine; PCP Nurse Practitioner Family; Visit Provider Psychiatry & Neurology Neurology | DX: G45.9 Transient cerebral ischemic attack, unspecified (principal) | CPT/HCPCS: 99222 ==

== ENCOUNTER → 2023-10-22 09:47 | Outpatient (REF) | payer BC, SELFPAY ==
--- NOTE | 2023-10-22 10:05 | CA_ITS ---
Transthoracic Echocardiogram Patient (Last, First, Middle): Ctaracho Fowler L Gender: Male Date of : 1965 Age: 58 Procedure Date: 10/22/2023 Procedure Type: Transthoracic Echocardiogram Location: S3W Height: 157.48 cm Weight: 84.37 kg BSA: 1.85 m2 Heart Rate: bpm BP: 132 / [address] Advisor: MELI Referring MD: Briseyda Torres MD [employer] Operator: Bhupendra Fraga MD Symptoms: TIA Study Quality: Adequate w contrast ECG Rhythm: Sinus Conclusions: - 1. No clear evidence of intracardiac shunting at the atrial level by saline contrast study 2. Normal LV ejection fraction of 65-70% 3. Normal cardiac valvular Doppler 4. No gross pericardial effusion Findings Procedure Information Contrast agent, definity, is being given per protocol without apparent complications. Left Ventricle Normal left ventricular size, thickness, and systolic function. The visually estimated ejection fraction is between 65-70%. Spectral Doppler is indicative of a normal filling pattern. Right Ventricle Normal right ventricular cavity size and systolic function. Atria Both atria are normal in size. There is no evidence of interatrial shunt by agitated saline. negative bubble study. Aortic Valve The aortic valve structure and function is likely normal. There is no aortic valve stenosis. There is no aortic valve regurgitation. Mitral Valve Normal mitral valve structure and function. There is trace mitral valve regurgitation. There is no mitral valve stenosis. Pulmonic Valve The pulmonic valve was not well visualized. Tricuspid Valve The tricuspid valve was not well visualized. Tricuspid regurgitation envelope is inadequate for calculation of right ventricular systolic pressure. Great Vessels All visible segments of the aorta are normal in size. The pulmonary artery was not well visualized. There is no dilatation of the ascending aorta measuring 3.10 cm. Venous The inferior vena cava is normal in size and collapses greater than 50% with inspiration. Pericardium/Pleural There is no evidence of pericardial effusion. Prior Study Comparison No prior study available for comparison. Measurements 2D Linear Measurements IVSd: 0.73 0.6-0.9/0.6-1.0 cm LVIDd: 5.25 3.9-5.3/4.2-5.9 cm LVIDd Index: 2.84 2.4-3.2/2.2-3.1 cm/m2 LVIDs: 2.65 2.0-3.6 cm LVPWd: 0.91 0.7-1.1 cm LA Diam: 2.90 2.7-3.8/3.0-4.0 cm LAIDs Index: 1.57 1.5-2.3 cm/m2 LV Mass: 189.53 67-162/88-224 g LV Mass Index: 102.45 43-95/49-115 g/m2 LVOT Diam: 2.00 3.0+(-)1.3 cm 2D Systolic Function EF 4C: 68.90 >55% EF 2C: 62.30 >55% EF BiP: 67.20 >55% Mitral Valve MV Pk E: 1.02 MV PK A: 0.85 MV Decel Time: 176.00 E/A: 1.20 E'Lateral: 8.16 E'Medial: 7.51 E/E' Med: 13.60 E/E' Lat: 12.50 PHT: 52.00 MVA PHT: 4.23 Decel [place]: 5.77 Aortic Valve AoV Pk Toni: 1.58 AoV Mn Toni: 1.07 AoV VTI: 0.39 AoV Pk Grad: 10.00 Aov Mn Grad: 5.00 RUBY Cont.VTI: 1.57 LVOT LVOT Pk Toni: 0.89 LVOT Mn Toni: 0.56 LVOT VTI: 0.19 LVOT Pk Grad: 3.00 LVOT Mn Grad: 2.00 LVOT Diam: 2.00 LVOT Area: 3.14 Diastolic Function MV Pk E: 1.02 MV Pk A: 0.85 E/A: 1.20 E'Medial: 7.51 E/E' Med: 13.60 E' Laterial: 8.16 E/E' Lat: 12.50 Right Ventricle TAPSE (mm): 21.20 TVS' Toni: 10.80 Tricuspid Valve RA Press: 3.00 Great Vessels Aorta Sinus of Valsalva: 3.51 2.0-3.[address] [place]: 3.24 1.7-3.4 cm Ao Asc: 3.10 2.1-3.4 cm Updated in Other Vendor System with Status of Final Bhupendra Fraga MD electronically signed on 10/22/2023 4:34:38 PM with status of Final
== END ==
LOC: HO.CARD 09:47
PROVIDERS: PCP Nurse Practitioner Family; Visit Provider Psychiatry & Neurology Neurology
DX: G45.9 Transient cerebral ischemic attack, unspecified (principal)
CPT/HCPCS: 93306; Q9957

== ENCOUNTER → 2023-10-22 10:05 | Outpatient (BNV) | payer BC, SELFPAY | PROVIDERS: PCP Nurse Practitioner Family; Visit Provider Internal Medicine Cardiovascular Disease | DX: I34.0 Nonrheumatic mitral (valve) insufficiency (principal) | CPT/HCPCS: 93306 ==